=== PATIENT | female | born 1990 | race Caucasian/White ===

== ENCOUNTER 2017-05-06 17:20 | Emergency (ER) | payer BC ==
[2017-05-06 17:30] VITALS: BP 143/85
[2017-05-06] MEDS ORDERED: predniSONE 20 MG Tab PO ONE (18:05)
[2017-05-06] MEDS ORDERED: Acetaminophen 325 MG Tab PO ONE (18:06)
--- NOTE | 2017-05-06 18:06 | EDM.PDOC ---
ED HPI GENERAL MEDICAL PROBLEM - General Chief Complaint: Chest Pain Stated Complaint: CHEST PAIN W/DULL PAINI IN ARM Time Seen by Provider: 05/06/17 17:26 Source of Information: Reports: Patient, RN Notes Reviewed - History of Present Illness INITIAL COMMENTS - FREE TEXT/NARRATIVE: 27-year-old female comes in with left-sided chest discomfort, left shoulder pain and radiation of pain down the left arm. The pain is left upper chest just medial to the shoulder. This is described as an aching and burning type discomfort. She also does have some radiation of the left neck toward the left jaw and ear. Pain has been fairly steady for about the last 7 days. She states certain types of motion actually seemed to make it better, not aware of any particular activities that make it worse. She does work at [employer] and does have a lot of repetitive motion with her arms and her work in the [employer] department. nO Recent fall or injury that she is aware of. Left Upper Chest Pain Score (Numeric/FACES): 5 - Related Data Allergies Allergy/AdvReac Type Severity Reaction Status Date / Time No Known Allergies Allergy Verified 05/06/17 17:30 Home Meds: Home Meds Ethinyl Estradiol/Drospirenone [Loryna 3 MG-0.02 MG] 1 each PO ASDIRECTED [History] Hydrochlorothiazide. 25 mg PO DAILY 01/25/15 [History] Spironolactone. 25 mg PO DAILY 01/25/15 [History] Pantoprazole [Pantoprazole Sodium] 40 mg PO DAILY 05/06/17 [History] Prednisone [IJD: predniSONE] 20 mg PO WITHBREAKFAST #7 tab 05/06/17 [Rx] Past Medical History - Past Health History Medical/Surgical History: Denies Medical/Surgical History HEENT History: Reports: Impaired Vision Cardiovascular History: Reports: Hypertension Gastrointestinal History: Reports: GERD - Past Surgical History GI Surgical History: Reports: Cholecystectomy, EGD Social & Family History - Tobacco Use Smoking Status *Q: Never Smoker Second Hand Smoke Exposure: No - Caffeine Use Caffeine Use: Reports: None - Alcohol Use Days Per Week of Alcohol Use: 0 - Recreational Drug Use Recreational Drug Use: No ED ROS GENERAL - Review of Systems Review Of Systems: See Below Constitutional: Denies: Fever, Chills, Diaphoresis HEENT: Denies: Sinus Problem, Throat Pain Respiratory: Reports: Pleuritic Chest Pain. Denies: Shortness of Breath Cardiovascular: Denies: Chest Pain GI/Abdominal: Denies: Abdominal Pain (Occasional mild discomfort with deep breathing), Nausea, Vomiting Musculoskeletal: Reports: Neck Pain (Mild left base), Joint Pain Skin: Reports: No Symptoms (Left shoulder radiating to left arm) Neurological: Denies: Numbness, Tingling, Weakness ED EXAM, GENERAL - Physical Exam Exam: See Below General Appearance: Alert, No Apparent Distress Eye Exam: Bilateral Eye: PERRL Ear Exam: Left Ear: TM normal Nose: Normal Inspection Throat/Mouth: Normal Inspection Head: Atraumatic. No: Facial Swelling, Facial Tenderness Neck: Supple, Full Range of Motion, Other (For mild tenderness left base, no swelling or mass palpable). No: Lymphadenopathy (L), Lymphadenopathy (R) Respiratory/Chest: No Respiratory Distress, Lungs Clear, Normal Breath Sounds, Chest Non-Tender (For a mild tenderness left sternal border and left upper anterior chest as well) Cardiovascular: Regular Rate, Rhythm GI/Abdominal: Soft, Non-Tender Extremities: Normal Inspection Neurological: Alert, Oriented, No Motor/Sensory Deficits Skin Exam: Warm, Dry, Normal Color EKG INTERPRETATION EKG Date: 05/06/17 Rhythm: NSR [place]: Normal P-Wave: Present QRS: Normal ST-T: Normal Course - Vital Signs Last Recorded V/S: Last Vital Signs Temp 97.1 F 05/06/17 17:25 Pulse 86 05/06/17 17:25 Resp 16 05/06/17 17:25 BP 143/85 H 05/06/17 17:25 Pulse Ox 100 05/06/17 17:25 - Orders/Labs/Meds Orders: Active Orders 24 hr Category Date Time Status EKG 12 Lead [EKG Documentation Completion] [RC] URGENT Care 05/06/17 17:36 Active Meds: Medications Discontinued Medications Generic Name Dose Route Start Last Admin Trade Name Zeferinoq PRN Reason Stop Dose Admin Acetaminophen 975 mg 05/06/17 18:06 Tylenol PO 05/06/17 18:07 NOW ONE Prednisone 40 mg 05/06/17 18:05 Prednisone PO 05/06/17 18:06 ONETIME ONE Departure - Departure Time of Disposition: 18:15 Disposition: Home, Self-Care 01 Condition: Fair Clinical Impression: Cervical radiculopathy, Atypical chest pain Prescriptions: Prednisone [IJD: predniSONE] 20 mg PO WITHBREAKFAST #7 tab Referrals: Alyse Bolanos MD [Primary Care Provider] - Forms: ED Department Discharge Additional Instructions: Tylenol 1 or 2 tabs 3 times daily for discomfort, prednisone 20 mg daily for the next 5 days, you have been given 40 mg orally while here in the ED this evening. Up with your regular medical provider in about 5-6 days later next week , call Sunday morning for appointment. Return to ED if symptoms worsening in any way. - My Orders Last 24 Hours: My Active Orders 05/06/17 17:36 EKG 12 Lead [EKG Documentation Completion] [RC] URGENT - Assessment/Plan Last 24 Hours: My Active Orders 05/06/17 17:36 EKG 12 Lead [EKG Documentation Completion] [RC] URGENT
== END 2017-05-06 18:23 | disposition home or self-care (01) ==
LOC: JD.ED 17:20
DX: R07.89 Other chest pain (principal); M54.12 Radiculopathy, cervical region; I10 Essential (primary) hypertension; K21.9 Gastro-esophageal reflux disease without esophagitis; Z79.899 Other long term (current) drug therapy
CPT/HCPCS: 93005; 99285; A9270; 93010; 99284

== ENCOUNTER 2017-09-12 02:04 | Emergency (ER) | payer BC ==
--- NOTE | 2017-09-12 02:17 | EDM.PDOC ---
ED HPI GENERAL MEDICAL PROBLEM - General Chief Complaint: Chest Pain Stated Complaint: CHEST AND SIDE PAIN Time Seen by Provider: 09/12/17 02:16 Source of Information: Reports: Patient History Limitations: Reports: No Limitations - History of Present Illness INITIAL COMMENTS - FREE TEXT/NARRATIVE: 27-year-old female attends the ED with left precordial chest pain. She states it 's a constant deep aching discomfort that worsens in intermittently with sharp stabbing pains. She's had it off and on since last week which is nearly 6 days. She has had a very mild associated bronchitis and cough. No fever or chills. The control pill. She has no recent long travel history. She does work and stands sometimes for 8-10 hours at a time. No history of blood clots appreciated. Pain is worsened by deep inspiration. No recent chest wall injuries. She did take Tylenol yesterday afternoon for the pain and bleeding that did help some. Onset: Gradual Onset Date: 09/06/17 Duration: Day(s):, Getting Worse (Much more intense tonight.), Intermittent Location: Reports: Chest (Left precordial chest range through to her upper mid back left side) Quality: Reports: Ache, Sharp (Intermittently), Stabbing Severity: Moderate Improves with: Reports: None Worsens with: Reports: None Context: Reports: Other. Denies: Activity, Exercise, Lifting, Sick Contact, Trauma Associated Symptoms: Reports: Chest Pain ( has mild bronchitis which is getting better), Cough, cough w sputum (Spontaneous occurrence). Denies: No Other Symptoms, Confusion ( history of present illness ), Diaphoresis, Fever/Chills, Headaches, Loss of Appetite, Malaise, Nausea/Vomiting, Rash, Seizure, Shortness of Breath, Syncope, Weakness Treatments SHIPYARD HELPER: Reports: Acetaminophen Left Chest Pain Score (Numeric/FACES): 6 - Related Data Allergies Allergy/AdvReac Type Severity Reaction Status Date / Time No Known Allergies Allergy Verified 09/12/17 02:10 Home Meds: Home Meds Ethinyl Estradiol/Drospirenone [Loryna 3 MG-0.02 MG] 1 each PO ASDIRECTED [History] Hydrochlorothiazide. 25 mg PO DAILY 01/25/15 [History] Spironolactone. 25 mg PO DAILY 01/25/15 [History] Pantoprazole [Pantoprazole Sodium] 40 mg PO DAILY 05/06/17 [History] Diclofenac Sodium [Voltaren] 50 mg PO TID #24 tab.ec 09/12/17 [Rx] predniSONE [Deltasone] 20 mg PO ASDIRECTED #15 tablet 09/12/17 [Rx] Past Medical History - Past Health History Medical/Surgical History: Denies Medical/Surgical History HEENT History: Reports: Impaired Vision Other HEENT History: Wears glasses Cardiovascular History: Reports: Hypertension Gastrointestinal History: Reports: GERD - Past Surgical History GI Surgical History: Reports: Cholecystectomy, EGD Social & Family History - Tobacco Use Smoking Status *Q: Never Smoker - Caffeine Use Caffeine Use: Reports: None - Recreational Drug Use Recreational Drug Use: No - Living Situation & Occupation Living situation: Reports: Occupation: Employed ED ROS GENERAL - Review of Systems Review Of Systems: See Below Constitutional: Denies: Fever, Chills, Malaise, Fatigue, Decreased Appetite, Weight Loss HEENT: Reports: No Symptoms Respiratory: Reports: Pleuritic Chest Pain (Some pains are sharp and stabbing left precordial chest.). Denies: Shortness of Breath, Wheezing, Cough, Sputum, Hemoptysis, Other Cardiovascular: Reports: Chest Pain. Denies: Blood Pressure Problem, Claudication, Dyspnea on Exertion, Edema, Lightheadedness (See history of present illness), Orthopnea, Palpitations, Syncope Endocrine: Reports: No Symptoms GI/Abdominal: Reports: No Symptoms : Reports: No Symptoms Musculoskeletal: Reports: No Symptoms Skin: Reports: No Symptoms Neurological: Reports: No Symptoms Psychiatric: Reports: No Symptoms Hematologic/Lymphatic: Reports: No Symptoms Immunologic: Reports: No Symptoms ED EXAM, GENERAL - Physical Exam Exam: See Below Exam Limited By: No Limitations General Appearance: Alert, WD/WN, Anxious, Mild Distress Eye Exam: Bilateral Eye: Normal Inspection Neck: Normal Inspection, Supple, Non-Tender, Full Range of Motion. No: Carotid Bruit, Lymphadenopathy (L), Lymphadenopathy (R) Respiratory/Chest: No Respiratory Distress, Lungs Clear, Normal Breath Sounds, No Accessory Muscle Use, Other (She has slight tenderness on palpation of the fourth rib left anterior lateral chest particularly at the anterior axillary line.) Cardiovascular: Normal Peripheral Pulses, Regular Rate, Rhythm, No Edema, No Gallop, No Murmur Peripheral Pulses: 3+: Posterior Tibial (L), Posterior Tibial (R), Dorsalis Pedis (L), Dorsalis Pedis (R) GI/Abdominal: Normal Bowel Sounds, Soft, Non-Tender, No Organomegaly Back Exam: Normal Inspection, Full Range of Motion, Other (No definite rib head subluxation appreciated). No: CVA Tenderness (L), CVA Tenderness (R) Extremities: Normal Inspection, Normal Range of Motion, Non-Tender, No Pedal Edema, Other (No dependent edema. Both calves are soft and compliant.) Neurological: Alert, Oriented, CN II-XII Intact, Normal Cognition, Normal Gait, Other Psychiatric: Normal Affect, Normal Mood Skin Exam: Warm, Dry, Intact, Normal Color, No Rash EKG INTERPRETATION EKG Date: 09/12/17 Time: 02:30 Rhythm: NSR Rate (Beats/Min): 80 [place]: Normal P-Wave: Present QRS: Normal ST-T: Normal QT: Prolonged (Minimally prolonged.) EKG Interpretation Comments: Essentially normal ECG Course - Vital Signs Last Recorded V/S: Last Vital Signs Temp 36.9 C 09/12/17 02:10 Pulse 72 09/12/17 04:10 Resp 15 09/12/17 04:10 BP 126/81 09/12/17 04:10 Pulse Ox 99 09/12/17 04:10 - Orders/Labs/Meds Orders: Active Orders 24 hr Category Date Time Status EKG Documentation Completion [RC] STAT Care 09/12/17 02:23 Active Labs: Laboratory Tests 09/12/17 09/12/17 09/12/17 Range/Units 02:35 02:35 02:35 WBC 9.17 (3.98-10.04) K/mm3 RBC 4.25 (3.98-5.22) M/mm3 Hgb 12.0 (11.2-15.7) gm/L Hct 36.0 (34.1-44.9) % MCV 84.7 (79.4-94.8) fl MCH 28.2 (25.6-32.2) pg MCHC 33.3 (32.2-35.5) g/dl RDW Std Deviation 37.1 (36.4-46.3) fL Plt Count 259 (182-369) K/mm3 MPV 9.7 (9.4-12.3) fl Neutrophils % (Manual) 54 (40-60) % Band Neutrophils % 3 (0-10) % Lymphocytes % (Manual) 37 (20-40) % Atypical Lymphs % 0 % Monocytes % (Manual) 5 (2-10) % Eosinophils % (Manual) 0 L (0.7-5.8) % Basophils % (Manual) 1 (0.1-1.2) Platelet Estimate Adequate RBC Morph Comment Normal D-Dimer, Quantitative 0.21 (0.19-0.50) mg/L Sodium 140 (136-145) mEq/L Potassium 3.1 L (3.5-5.1) mEq/L Chloride 103 (98-107) mEq/L Carbon Dioxide 27 (21-32) mEq/L Anion Gap 13.1 (5-15) BUN 12 (7-18) mg/dL Creatinine 0.8 (0.55-1.02) mg/dL Est Cr Clr Drug Dosing 92.83 mL/min Estimated GFR (MDRD) > 60 (>60) mL/min BUN/Creatinine Ratio 15.0 (14-18) Glucose 98 (74-106) mg/dL Calcium 9.3 (8.5-10.1) mg/dL Total Bilirubin 0.5 (0.2-1.0) mg/dL AST 13 L (15-37) U/L ALT 13 L (14-59) U/L Alkaline Phosphatase 48 (46-116) U/L Troponin I < 0.017 (0.00-0.056) ng/mL C-Reactive Protein (<1.0) mg/dL Total Protein 7.4 (6.4-8.2) g/dl Albumin 3.6 (3.4-5.0) g/dl Globulin 3.8 gm/dL Albumin/Globulin Ratio 1.0 (1-2) /09/24 Range/Units 02:35 WBC (3.98-10.04) K/mm3 RBC (3.98-5.22) M/mm3 Hgb (11.2-15.7) gm/L Hct (34.1-44.9) % MCV (79.4-94.8) fl MCH (25.6-32.2) pg MCHC (32.2-35.5) g/dl RDW Std Deviation (36.4-46.3) fL Plt Count (182-369) K/mm3 MPV (9.4-12.3) fl Neutrophils % (Manual) (40-60) % Band Neutrophils % (0-10) % Lymphocytes % (Manual) (20-40) % Atypical Lymphs % % Monocytes % (Manual) (2-10) % Eosinophils % (Manual) (0.7-5.8) % Basophils % (Manual) (0.1-1.2) Platelet Estimate RBC Morph Comment D-Dimer, Quantitative (0.19-0.50) mg/L Sodium (136-145) mEq/L Potassium (3.5-5.1) mEq/L Chloride (98-107) mEq/L Carbon Dioxide (21-32) mEq/L Anion Gap (5-15) BUN (7-18) mg/dL Creatinine (0.55-1.02) mg/dL Est Cr Clr Drug Dosing mL/min Estimated GFR (MDRD) (>60) mL/min BUN/Creatinine Ratio (14-18) Glucose (74-106) mg/dL Calcium (8.5-10.1) mg/dL Total Bilirubin (0.2-1.0) mg/dL AST (15-37) U/L ALT (14-59) U/L Alkaline Phosphatase (46-116) U/L Troponin I (0.00-0.056) ng/mL C-Reactive Protein 0.8 (<1.0) mg/dL Total Protein (6.4-8.2) g/dl Albumin (3.4-5.0) g/dl Globulin gm/dL Albumin/Globulin Ratio (1-2) Meds: Medications Discontinued Medications Generic Name Dose Route Start Last Admin Trade Name Freq PRN Reason Stop Dose Admin Ibuprofen 600 mg 09/12/17 03:54 09/12/17 04:06 Motrin PO 09/12/17 03:55 600 mg ONETIME ONE Administration Prednisone 20 mg 09/12/17 03:55 09/12/17 04:06 Prednisone PO 09/12/17 03:56 20 mg ONETIME ONE Administration - Radiology Interpretation Free Text/Narrative:: 27-year-old female says to the ED with increasing left precordial chest pains which are deep aching discomfort with intermittent sharp stabbing pleuritic- like pains for 6 days. Worse tonight unable to sleep because of the severity of the pain. She is taken Tylenol yesterday afternoon with mild improvement. Vital signs are normal with sats 100% respiratory to 16. Heart is sinus rhythm. Chest wall pain is minimal at the fourth rib left anterior chest. No other findings are evident with clear lung alonzo. Plan ECG chest x-ray portable routine labs including a d-dimer and a CRP. She was offered analgesia but at this time refused. - Re-Assessments/Exams Free Text/Narrative Re-Assessment/Exam: 09/12/17 03:00: Chest x-ray done portably is within normal limits. Shows no pneumonic infiltrates no pneumothorax. Ribs and lung parenchyma appear normal 09/12/17 03:49 Labs are back. White count is normal at 9.17 with 54% it feels and 3% bands reported. Hemoglobin is 12.0 with hematocrit of 36.0. Platelet count is 259,000. D-dimer is normal at 0.21. Sodium is 140 with potassium low at 3.1. Chloride 103 with a bicarbonate of 27. And a gap is normal at 13.1. BUN is 12 with a creatinine of 0.8. GFR is greater than 60. Glucose is 98. Calcium is 9.3 total bilirubin 0.5 AST is 13. ALT is 13. Troponin I is less than 0.017. CRP is less than 0.8. Therefore lab so reveal anything serious. Chest pain is likely of viral etiology. I'm going to place her on 07/17/49 milliamps 3 times daily for 8 days and prednisone 21 g twice a day for 5 days and then once in the morning only for another 5 days for relief of inflammation and pain. Departure - Departure Time of Disposition: 03:55 Disposition: Home, Self-Care 01 Condition: Fair Clinical Impression: Non-cardiac chest pain, Anterior chest wall pain Prescriptions: Diclofenac Sodium [Voltaren] 50 mg PO TID #24 tab.ec predniSONE [Deltasone] 20 mg PO ASDIRECTED #15 tablet Instructions: Chest Wall Pain, [id number], Nonspecific Chest Pain, Easy-to- Read Referrals: Alyse Bolanos MD [Primary Care Provider] - Forms: ED Department Discharge Additional Instructions: Evaluation in the emergency department tonight in regards to worsening left precordial upper left chest pain. Symptoms started 6 days ago and were much worse tonight. Described as a deep dull aching sensation with intermittent sharp stabbing component to the pain especially with deep breathing. Cardiac workup was carried out in the ED today. ECG is within normal limits. Chest x- ray is normal. Lab tests show no signs of heart involvement in this chest pain. Also blood clots to the lungs were ruled out. Markers for inflammation were also negative. This suggests that this current discomfort is viral in origin and involving muscles and lining of the ribs of the left chest wall. Treatment is time to get better. Think of it as a" cold " in your chest wall. Treatment is anti-inflammatory Voltaren 50 mg 3 times daily ideally with food. This is to be taken for 8 days. Second tablet is Deltasone 20 mg with breakfast and supper for 5 days then 1 tab in the morning only for another 5 days. First dose provided in the ED this morning and is considered her breakfast dose. Therefore next tablet would not be due to suppertime tonight. Expect gradual improvement over the next 3 days as the medication starts to work. Follow-up post personal physician if not completely back to normal in 10 days' time - My Orders Last 24 Hours: My Active Orders 09/12/17 02:23 EKG Documentation Completion [RC] STAT - Assessment/Plan Last 24 Hours: My Active Orders 09/12/17 02:23 EKG Documentation Completion [RC] STAT
[2017-09-12] MEDS ORDERED: Ibuprofen 600 MG Tab PO ONE (03:54)
[2017-09-12] MEDS ORDERED: predniSONE 20 MG Tab PO ONE (03:55)
[2017-09-12 04:12] VITALS: BP 126/81
--- NOTE | 2017-09-12 09:47 | CR ---
Chest: Frontal view of the chest was obtained. Comparison: Prior chest x-ray of 12/01/15. Heart size and mediastinum are within normal limits. Lungs are clear. Bony structures are grossly intact. Impression: 1. Nothing acute is seen on frontal chest x-ray. Diagnostic code #1
== END 2017-09-12 04:10 | disposition home or self-care (01) ==
LOC: JD.ED 02:04
DX: R07.89 Other chest pain (principal); I10 Essential (primary) hypertension; Z79.899 Other long term (current) drug therapy
CPT/HCPCS: 36415; 71045; 80053; 84484; 85007; 85027; 85379; 86140; 93005; 99285; A9270

== ENCOUNTER 2019-11-04 07:47 | Inpatient (IN) | payer OTHER ==
[2019-11-04] MEDS ORDERED: Misoprostol 100 MCG Tab VAG PRN (19:07)
[2019-11-04] MEDS ORDERED: Nalbuphine 10 MG/ML Syringe IVPUSH PRN (19:07)
[2019-11-04] MEDS ORDERED: Sodium Chloride 0.9% 10 ML Syringe FLUSH PRN (19:07)
[2019-11-04] MEDS ORDERED: Ondansetron 4 MG/2 ML SDV IVPUSH PRN (19:07)
--- NOTE | 2019-11-04 19:12 | PCM.LDHP ---
L&D History of Present Illness - General Date of Service: 11/04/19 Admit Problem/Dx: Patient Status Order with Admit Dx/Problem 11/04/19 19:07 Patient Status [ADT] Routine Admission Diagnosis/Problem Admission Diagnosis/Problem Chronic hypertension Source of Information: Patient History Limitations: Reports: No Limitations - History of Present Illness Introduction:: Patient is a 29 y/o at 37 0/7 wks for labile CHTN in . Known CHTN at start of , but off medications since 01/2019. Had mid-mild range BP's in early , but at 16 wks had pressure just under severe range and so was started on Procardia, 30 mg. Had additional severe range at 20 wks, but then remained stable in mild range until 34 wks. At that point had again pressure right under severe range. Had Procardia increased to 60 mg. Labs and NST's done frequently. No signs of superimposed preeclampsia, but instead thought to be a worsening of her CHTN. Doing well today. No worrisome signs/symptoms. Notes good FM. - Related Data Allergies/Adverse Reactions: Allergies Allergy/AdvReac Type Severity Reaction Status Date / Time No Known Allergies Allergy Verified 10/20/19 09:02 Home Medications: Home Meds Aspirin [Low Dose Aspirin EC] 81 mg PO DAILY 10/20/19 [History] FLUoxetine [PROzac] 10 mg PO DAILY 10/20/19 [History] Fish Oil/[place]-3 Fatty Acids [Fish Oil 1,000 MG] 1 each PO DAILY 10/20/19 [History] NIFEdipine [Procardia] 60 mg PO DAILY 10/20/19 [History] Prenat 115/Iron Fum/Folic/Dss [ 19 Tablet] 1 each PO DAILY 10/20/19 [ History] Past Medical History HEENT History: Reports: Impaired Vision Other HEENT History: Wears glasses Cardiovascular History: Reports: Hypertension Gastrointestinal History: Reports: Cholelithiasis, GERD METAL BONDER History: Reports: Polycystic Ovaries, : 1 Para: 0 LMP (Approximate): Psychiatric History: Reports: Depression - Past Surgical History HEENT Surgical History: Reports: Oral Surgery (tooth extraction) GI Surgical History: Reports: Cholecystectomy, Colonoscopy, EGD Social & Family History - Tobacco Use Smoking Status *Q: Never Smoker - Caffeine Use Caffeine Use: Reports: None - Alcohol Use Alcohol Use History: No - Recreational Drug Use Recreational Drug Use: No - Living Situation & Occupation Living situation: Reports: Occupation: Employed H&P Review of Systems - Review of Systems: Review Of Systems: See Below General: Reports: No Symptoms Pulmonary: Reports: No Symptoms Cardiovascular: Reports: No Symptoms Gastrointestinal: Reports: No Symptoms Genitourinary: Reports: No Symptoms Musculoskeletal: Reports: No Symptoms Psychiatric: Reports: No Symptoms L&D Exam - Exam Exam: See Below - OB Specific Contraction Intensity: Irritability Movement: Active Heart Tones: Present Heart Tones per Min: 140 Heart Rate (FHR) Variability: Moderate (6-25 bmp) Presentation: Vertex - Gómez Score Gómez Score Cervix Position: Midposition Gómez Score Consistency: Soft Gómez Score Effacement: 51-70% Gómez Score Dilation: Closed Gómez Score 's Station: -3 Gómez Score Total: 5 - Exam General: Alert, Oriented, Cooperative Lungs: Clear to Auscultation, Normal Respiratory Effort Cardiovascular: Regular Rate, Regular Rhythm GI/Abdominal Exam: Soft, Non-Tender Genitourinary: Normal external exam Extremities: Normal Inspection Skin: Warm, Dry, Intact - Patient Data Result Diagrams: 11/04/19 19:25 11/04/19 19:25 - Problem List (1) Chronic hypertension affecting SNOMED Code(s): 49229962 ICD Code: O10.919 - UNSP PRE-EXISTING HTN COMP , UNSP TRIMESTER Status: Acute Current Visit: Yes (2) 37 weeks gestation of SNOMED Code(s): 29063169 ICD Code: Z3A.37 - 37 WEEKS GESTATION OF Status: Acute Current Visit: Yes Problem List Initiated/Reviewed/Updated: Yes Orders Last 24hrs: Active Orders 24 hr Category Date Time Status Patient Status [ADT] Routine ADT 11/04/19 19:07 Ordered Communication Order [RC] ASDIRECTED Care 11/04/19 19:07 Ordered Communication Order [RC] ASDIRECTED Care 11/04/19 19:07 Ordered Communication Order [RC] ASDIRECTED Care 11/04/19 19:07 Ordered Non Stress Test [RC] PER UNIT ROUTINE Care 11/04/19 19:07 Ordered Notify Provider [RC] ASDIRECTED Care 11/04/19 19:07 Ordered Notify Provider [RC] PRN Care 11/04/19 19:07 Ordered Peripheral IV Care [RC] . DIRECTED Care 11/04/19 19:08 Ordered Vital Signs [RC] ASDIRECTED Care 11/04/19 19:07 Ordered Regular Diet [DIET] Diet 11/04/19 Dinner Ordered ALANINE AMINOTRANSFERASE,ALT [CHEM] Routine Lab 11/04/19 19:07 Ordered ASPARTATE AMNIOTRANSFERASE,AST [CHEM] Routine Lab 11/04/19 19:07 Ordered CBC W/O DIFF,HEMOGRAM [HEME] Routine Lab 11/04/19 19:07 Ordered CREATININE W/GFR [CHEM] Routine Lab 11/04/19 19:07 Ordered PROTEIN/CREATININE RATIO,URINE [URCHEM] Routine Lab 11/04/19 19:07 Ordered RAPID PLASMA REAGIN,RPR [CHEM] Routine Lab 11/04/19 19:07 Ordered TYPE AND SCREEN [BBK] Routine Lab 11/04/19 19:07 Ordered Lactated Ringers [Ringers, Lactated] 1,000 ml Med 11/04/19 19:15 Ordered IV ASDIRECTED Nalbuphine [Nubain] Med 11/04/19 19:07 Ordered 10 mg IVPUSH Q2H PRN Ondansetron [Zofran] Med 11/04/19 19:07 Ordered 4 mg IVPUSH Q4H PRN Oxytocin/Lactated Ringers [Pitocin in LR 10 Units/1,000 Med 11/04/19 19:15 Ordered ML] 10 unit in 1,000 ml IV .CONTINUOUS Oxytocin/Lactated Ringers [Pitocin in LR 10 Units/1,000 Med 11/04/19 19:15 Ordered ML] 10 unit in 1,000 ml IV TITRATE Sodium Chloride 0.9% [Saline Flush] Med 11/04/19 19:07 Ordered 10 ml FLUSH ASDIRECTED PRN miSOPROStoL [Cytotec] Med 11/04/19 19:07 Ordered 25 mcg VAG Q4H PRN Electronic Heart Tones Internal [WOMSER] Per Unit Oth 11/04/19 19:07 Ordered Routine Medication Administration Instruction [OM.PC] Oth 11/04/19 19:15 Ordered ASDIRECTED Peripheral IV Insertion Adult [OM.PC] Routine Oth 11/04/19 19:07 Ordered Resuscitation Status Routine Resus Stat 07/28/20 19:07 Ordered Assessment/Plan Comment:: * Labs including AST, ALT, Creatinine, urine protein to creatinine ratio * Continue home Procardia XL 60 mg daily * Cytotec to start IOL, pitocin/AROM when able * GBS negative, no need for antibiotics * Pain management per patient preference * Anticipate * Continue home Prozac
[2019-11-04] MEDS ORDERED: Misoprostol 25 MCG (1/4 of 100 MCG) Tab ONE (19:15)
[2019-11-04] MEDS ORDERED: Oxytocin/Lactated Ringers 10 UNIT/1,000 ML BAG IV SCH ×2 (19:15)
[2019-11-04] MEDS ORDERED: Zolpidem 5 MG Tab PO PRN (19:30)
[2019-11-04] MEDS ORDERED: FLUoxetine 20 MG Cap PO SCH (21:00)
[2019-11-05] MEDS: Misoprostol 25 MCG (1/4 of 100 MCG) Tab VAG PRN ×2 (00:05→04:00)
[2019-11-05] MEDS ORDERED: NIFEdipine 30 MG Tab.ER PO SCH (07:00)
--- NOTE | 2019-11-05 07:26 | PCM.PNLD ---
Labor Progress Note - VS & Meds Vital Signs: Last Vital Signs Temp 36.4 C 11/04/19 19:26 Pulse 112 H 11/04/19 19:26 Resp 16 11/04/19 19:26 BP 152/96 H 11/04/19 19:26 Pulse Ox Active Medications: Current Medications Fluoxetine HCl (Prozac) 20 mg PO DAILY [facility] Oxytocin/Lactated Ringer's (Pitocin In Lr 10 Units/1,000 Ml) 10 unit in 1,000 mls @ 12 mls/hr IV TITRATE [facility]; Protocol Oxytocin/Lactated Ringer's (Pitocin In Lr 10 Units/1,000 Ml) 10 unit in 1,000 mls @ 500 mls/hr IV .CONTINUOUS [facility] Lactated Ringer's (Ringers, Lactated) 1,000 mls @ 40 mls/hr IV ASDIRECTED [facility] Nalbuphine HCl (Nubain) 10 mg IVPUSH Q2H PRN PRN Reason: Pain Nifedipine (Procardia Xl) 60 mg PO ONETIME [facility] Ondansetron HCl (Zofran) 4 mg IVPUSH Q4H PRN PRN Reason: Nausea/Vomiting Sodium Chloride (Saline Flush) 10 ml FLUSH ASDIRECTED PRN PRN Reason: Keep Vein Open Zolpidem Tartrate (Ambien) 5 mg PO BEDTIME PRN PRN Reason: Insomnia Discontinued Medications Fluoxetine HCl (Prozac) 20 mg PO BEDTIME [facility] Last Admin: 11/04/19 21:03 Dose: Not Given Documented by: Misoprostol (Cytotec) 25 mcg VAG Q4H PRN PRN Reason: cervical ripening Last Admin: 11/04/19 19:20 Dose: 25 mcg Documented by: Misoprostol (Cytotec) Confirm Administered Dose 25 mcg .ROUTE .STK-MED ONE Stop: 11/04/19 19:16 Last Admin: 11/04/19 21:01 Dose: Not Given Documented by: Misoprostol (Cytotec) 25 mcg VAG Q4H PRN PRN Reason: cervical ripening Last Admin: 11/05/19 04:00 Dose: 25 mcg Documented by: - Uterine Contractions Uterine Monitoring Mode: External [place] Contraction Intensity: Irritability Uterine Resting Tone: Soft - Monitoring Monitor Mode: External Ultrasound Heart Rate (FHR) Baseline: 135 Heart Rate (FHR) Variability: Moderate (6-25 bmp) Accelerations: Present, 15x15 Decelerations: None Strip Review: Category I - Vaginal Exam Dilation (cm): 0.5 Effacement (Percent): 50 Station: -3 Cervical Position: Midposition - Labor Progress (Free Text) Labor Progress: Patient received 3 doses of cytotec overnight. Will start pitocin at 0800. Just attempted to place [place], but challenging and patient not able to tolerate. Will attempt again after has had a few hours of pitocin
[2019-11-05] MEDS: FLUoxetine 20 MG Cap PO SCH ×2 (07:37→10:38)
[2019-11-05] MEDS: Lactated Ringers 1,000 ML IV SCH ×3 (08:05→14:43)
[2019-11-05] MEDS ORDERED: Labetalol 100 MG/20 ML MDV IVPUSH ONE (08:24)
--- NOTE | 2019-11-05 09:11 | PCM.PNLD ---
Labor Progress Note - VS & Meds Vital Signs: Last Vital Signs Temp 36.4 C 11/04/19 19:26 Pulse 112 H 11/04/19 19:26 Resp 16 11/04/19 19:26 BP 153/93 H 11/05/19 07:36 Pulse Ox Active Medications: Current Medications Fluoxetine HCl (Prozac) 20 mg PO DAILY [facility] Last Admin: 11/05/19 07:37 Dose: 20 mg Documented by: Oxytocin/Lactated Ringer's (Pitocin In Lr 10 Units/1,000 Ml) 10 unit in 1,000 mls @ 12 mls/hr IV TITRATE [facility]; Protocol Last Titration: 11/05/19 08:35 Dose: 4 munits/min, 24 mls/hr Documented by: Oxytocin/Lactated Ringer's (Pitocin In Lr 10 Units/1,000 Ml) 10 unit in 1,000 mls @ 500 mls/hr IV .CONTINUOUS [facility] Lactated Ringer's (Ringers, Lactated) 1,000 mls @ 40 mls/hr IV ASDIRECTED [facility] Last Admin: 11/05/19 08:05 Dose: 40 mls/hr Documented by: Nalbuphine HCl (Nubain) 10 mg IVPUSH Q2H PRN PRN Reason: Pain Ondansetron HCl (Zofran) 4 mg IVPUSH Q4H PRN PRN Reason: Nausea/Vomiting Sodium Chloride (Saline Flush) 10 ml FLUSH ASDIRECTED PRN PRN Reason: Keep Vein Open Zolpidem Tartrate (Ambien) 5 mg PO BEDTIME PRN PRN Reason: Insomnia Discontinued Medications Fluoxetine HCl (Prozac) 20 mg PO BEDTIME [facility] Last Admin: 11/04/19 21:03 Dose: Not Given Documented by: Labetalol HCl (Normodyne) 20 mg IVPUSH ONETIME ONE; Protocol Stop: 11/05/19 08:25 Last Admin: 11/05/19 08:39 Dose: 20 mg Documented by: Misoprostol (Cytotec) 25 mcg VAG Q4H PRN PRN Reason: cervical ripening Last Admin: 11/04/19 19:20 Dose: 25 mcg Documented by: Misoprostol (Cytotec) Confirm Administered Dose 25 mcg .ROUTE .STK-MED ONE Stop: 11/04/19 19:16 Last Admin: 11/04/19 21:01 Dose: Not Given Documented by: Misoprostol (Cytotec) 25 mcg VAG Q4H PRN PRN Reason: cervical ripening Last Admin: 11/05/19 04:00 Dose: 25 mcg Documented by: Nifedipine (Procardia Xl) 60 mg PO ONETIME [facility] Last Admin: 11/05/19 07:36 Dose: 60 mg Documented by: - Uterine Contractions Uterine Monitoring Mode: External [place] Contraction Intensity: Irritability Uterine Resting Tone: Soft - Monitoring Monitor Mode: External Ultrasound Heart Rate (FHR) Baseline: 140 Heart Rate (FHR) Variability: Moderate (6-25 bmp) Accelerations: Present, 15x15 Decelerations: None Strip Review: Category I - Vaginal Exam Dilation (cm): 2 Effacement (Percent): 50 Station: -3 Cervical Position: Midposition - Labor Progress (Free Text) Labor Progress: Patient with a few severe range BP's this AM. No signs/symptoms. No concerning exam findings. Given 1 dose of IV labetalol - 20 mg with appropriate response. Had received her home Procardia at 0700. Will continue to monitor closely. Do not think this is findings of severe or superimposed preeclampsia and just her CHTN, however, will start magnesium if continues to be elevated. Wang bulb able to be successfully placed
[2019-11-05] MEDS ORDERED: Magnesium Sulfate/Water 2 GM in Premix Bag 1 BAG IV ONE (10:15)
[2019-11-05] MEDS ORDERED: Calcium Gluconate 10% 1 GM/10 ML SDV IV PRN (10:49)
[2019-11-05] MEDS ORDERED: Magnesium Sulfate/Water 4 GM in Premix Bag 1 BAG IV ONE (10:49)
[2019-11-05] MEDS ORDERED: Magnesium Sulfate/Water 50 ML ONE (10:53)
[2019-11-05] MEDS ORDERED: Lactated Ringers 1,000 ML IV SCH (11:15)
[2019-11-05] MEDS ORDERED: ePHEDrine 50 MG/ML SDV IVPUSH PRN (11:29)
[2019-11-05] MEDS ORDERED: diphenhydrAMINE 50 MG/ML SDV IVPUSH PRN (11:29)
[2019-11-05] MEDS ORDERED: fentaNYL 100 MCG/2 ML SDV EPIDUR PRN (11:29)
--- NOTE | 2019-11-05 11:34 | PCM.PREANE ---
Preanesthetic Assessment - Procedure Proposed Procedure: latha - Anesthesia/Transfusion/Family Hx Anesthesia History: Prior Anesthesia Without Reaction Family History of Anesthesia Reaction: No Transfusion History: No Prior Transfusion(s) - Review of Systems General: No Symptoms Pulmonary: No Symptoms Cardiovascular: No Symptoms Gastrointestinal: No Symptoms Neurological: No Symptoms Other: Reports: Anxiety - Physical Assessment Vital Signs: Last Vital Signs Temp 97.6 F 11/04/19 19:26 Pulse 112 H 11/04/19 19:26 Resp 16 11/04/19 19:26 BP 153/93 H 11/05/19 07:36 Pulse Ox Height: 5 ft 4 in Weight: 124.738 kg ASA Class: 3 Mental Status: Alert & Oriented x3 Airway Class: Mallampati = 1 Dentition: Reports: Missing Tooth/Teeth (front right missing) Thyro-Mental Finger Breadths: 3 Mouth Opening Finger Breadths: 3 ROM/Head Extension: Full Lungs: Clear to Auscultation, Normal Respiratory Effort Cardiovascular: Regular Rate, Regular Rhythm - Lab Values: Laboratory Last Values WBC 10.35 K/mm3 (3.98-10.04) H 11/04/19 19:25 RBC 3.85 M/mm3 (3.98-5.22) L 11/04/19 19:25 Hgb 10.9 gm/dl (11.2-15.7) L 11/04/19 19:25 Hct 34.0 % (34.1-44.9) L 11/04/19 19:25 MCV 88.3 fl (79.4-94.8) 11/04/19 19:25 MCH 28.3 pg (25.6-32.2) 11/04/19 19:25 MCHC 32.1 g/dl (32.2-35.5) L 11/04/19 19:25 RDW Std Deviation 40.6 fL (36.4-46.3) 11/04/19 19:25 Plt Count 196 K/mm3 (182-369) 11/04/19 19:25 MPV 9.9 fl (9.4-12.3) 11/04/19 19:25 Creatinine 0.7 mg/dL (0.55-1.02) 11/04/19 19:25 Est Cr Clr Drug Dosing TNP 11/04/19 19:25 Estimated GFR (MDRD) > 60 mL/min (>60) 11/04/19 19:25 AST 12 U/L (15-37) L 11/04/19 19:25 ALT 19 U/L (14-59) 11/04/19 19:25 Ur Random Creatinine 191.0 mg/dL (30.0-125.0) H 11/04/19 21:09 U Random Total Protein 19.4 mg/dL (0.0-11.8) H 11/04/19 21:09 Protein/Creatinin Ratio 101.6 mg/g (0-149) 11/04/19 21:09 RPR Non-reactive (NONREACTIVE) 11/04/19 19:25 COVID-19 ([facility]) Negative (NEGATIVE) 11/04/19 21:30 Blood Type O POSITIVE 11/04/19 19:25 Gel Antibody Screen Negative 11/04/19 19:25 - Allergies Allergies/Adverse Reactions: Allergies Allergy/AdvReac Type Severity Reaction Status Date / Time No Known Allergies Allergy Verified 11/04/19 21:22 - Blood Blood Available: No - Acknowledgements Anesthesia Type Planned: Epidural Pt an Appropriate Candidate for the Planned Anesthesia: Yes Alternatives and Risks of Anesthesia Discussed w Pt/Guardian: Yes Pt/Guardian Understands and Agrees with Anesthesia Plan: Yes PreAnesthesia Questionnaire - Past Health History Medical/Surgical History: Denies Medical/Surgical History HEENT History: Reports: Impaired Vision Other HEENT History: Wears glasses Cardiovascular History: Reports: Hypertension Respiratory History: Reports: None Gastrointestinal History: Reports: Cholelithiasis, GERD EXHAUST TENDER History: Reports: Polycystic Ovaries, Psychiatric History: Reports: Anxiety, Depression Other Psychiatric History: currently on fluoxitine Oncologic (Cancer) History: Reports: None - Past Surgical History HEENT Surgical History: Reports: Oral Surgery (tooth extraction) GI Surgical History: Reports: Cholecystectomy, Colonoscopy, EGD - SUBSTANCE USE Smoking Status *Q: Never Smoker Tobacco Use Within Last Twelve Months: No Second Hand Smoke Exposure: No Days Per Week of Alcohol Use: 0 Recreational Drug Use History: No - HOME MEDS Home Medications: Home Meds Aspirin [Low Dose Aspirin EC] 81 mg PO DAILY 10/20/19 [History] Fish Oil/[place]-3 Fatty Acids [Fish Oil 1,000 MG] 1 each PO DAILY 10/20/19 [History] NIFEdipine [Procardia] 60 mg PO DAILY 10/20/19 [History] Prenat 115/Iron Fum/Folic/Dss [ 19 Tablet] 1 each PO DAILY 10/20/19 [History] FLUoxetine HCl [Prozac] 20 mg PO DAILY 11/04/19 [History] Ferrous Sulfate, Dried [Iron] 160 mg PO DAILY 11/04/19 [History] - CURRENT (IN HOUSE) MEDS Current Meds: Current Medications Calcium Gluconate (Calcium Gluconate) 1 gm IV ASDIRECTED PRN PRN Reason: respiratory distress Fluoxetine HCl (Prozac) 20 mg PO DAILY [facility] Last Admin: 11/05/19 10:38 Dose: Not Given Documented by: Oxytocin/Lactated Ringer's (Pitocin In Lr 10 Units/1,000 Ml) 10 unit in 1,000 mls @ 12 mls/hr IV TITRATE [facility]; Protocol Last Titration: 11/05/19 10:33 Dose: 12 munits/min, 72 mls/hr Documented by: Oxytocin/Lactated Ringer's (Pitocin In Lr 10 Units/1,000 Ml) 10 unit in 1,000 mls @ 500 mls/hr IV .CONTINUOUS [facility] Lactated Ringer's (Ringers, Lactated) 1,000 mls @ 40 mls/hr IV ASDIRECTED [facility] Last Admin: 11/05/19 08:05 Dose: 1 mls/hr Documented by: Magnesium Sulfate (Magnesium Sulfate In Water Premix) 40 gm in 1,000 mls @ 50 mls/hr IV ASDIRECTED [facility] Lactated Ringer's (Ringers, Lactated) 1,000 mls @ 75 mls/hr IV ASDIRECTED [facility] Last Admin: 11/05/19 11:06 Dose: 4 mls/hr Documented by: Nalbuphine HCl (Nubain) 10 mg IVPUSH Q2H PRN PRN Reason: Pain Ondansetron HCl (Zofran) 4 mg IVPUSH Q4H PRN PRN Reason: Nausea/Vomiting Last Admin: 11/05/19 11:03 Dose: 4 mg Documented by: Sodium Chloride (Saline Flush) 10 ml FLUSH ASDIRECTED PRN PRN Reason: Keep Vein Open Zolpidem Tartrate (Ambien) 5 mg PO BEDTIME PRN PRN Reason: Insomnia Discontinued Medications Fluoxetine HCl (Prozac) 20 mg PO BEDTIME [facility] Last Admin: 11/04/19 21:03 Dose: Not Given Documented by: Magnesium Sulfate 4 gm/ Premix 50 mls @ 150 mls/hr IV ONETIME ONE Stop: 11/05/19 11:08 Last Admin: 11/05/19 11:15 Dose: 150 mls/hr Documented by: Magnesium Sulfate 2 gm/ Premix 50 mls @ 300 mls/hr IV ONETIME ONE Stop: 11/05/19 10:24 Last Admin: 11/05/19 11:06 Dose: 300 mls/hr Documented by: Magnesium Sulfate (Magnesium Sulfate In Water Premix) Confirm Administered Dose 50 mls @ as directed .ROUTE .STK-MED ONE Stop: 11/05/19 10:54 Last Admin: 11/05/19 11:20 Dose: Not Given Documented by: Labetalol HCl (Normodyne) 20 mg IVPUSH ONETIME ONE; Protocol Stop: 11/05/19 08:25 Last Admin: 11/05/19 08:39 Dose: 20 mg Documented by: Misoprostol (Cytotec) 25 mcg VAG Q4H PRN PRN Reason: cervical ripening Last Admin: 11/04/19 19:20 Dose: 25 mcg Documented by: Misoprostol (Cytotec) Confirm Administered Dose 25 mcg .ROUTE .STK-MED ONE Stop: 11/04/19 19:16 Last Admin: 11/04/19 21:01 Dose: Not Given Documented by: Misoprostol (Cytotec) 25 mcg VAG Q4H PRN PRN Reason: cervical ripening Last Admin: 11/05/19 04:00 Dose: 25 mcg Documented by: Nifedipine (Procardia Xl) 60 mg PO ONETIME [facility] Last Admin: 11/05/19 07:36 Dose: 60 mg Documented by:
[2019-11-05] MEDS: Magnesium Sulfate/Water 40 GM/1,000 ML BAG IV SCH (11:40)
--- NOTE | 2019-11-05 12:20 | PCM.PNLD ---
Labor Progress Note - VS & Meds Vital Signs: Last Vital Signs Temp 36.4 C 11/04/19 19:26 Pulse 112 H 11/04/19 19:26 Resp 16 11/04/19 19:26 BP 153/93 H 11/05/19 07:36 Pulse Ox Active Medications: Current Medications Calcium Gluconate (Calcium Gluconate) 1 gm IV ASDIRECTED PRN PRN Reason: respiratory distress Diphenhydramine HCl (Benadryl) 25 mg IVPUSH Q6H PRN PRN Reason: pruritis Ephedrine Sulfate (Ephedrine Sulfate) 5 mg IVPUSH ASDIRECTED PRN PRN Reason: Hypotension Fentanyl (Sublimaze) 100 mcg EPIDUR Q3H PRN PRN Reason: Pain Fentanyl/Bupivacaine HCl (Fentanyl/Bupivacaine/Ns 2 Mcg-0.125% 100 Ml) 100 ml EPIDUR ASDIRECTED PRN PRN Reason: Pain Fluoxetine HCl (Prozac) 20 mg PO DAILY [facility] Last Admin: 11/05/19 10:38 Dose: Not Given Documented by: Oxytocin/Lactated Ringer's (Pitocin In Lr 10 Units/1,000 Ml) 10 unit in 1,000 mls @ 12 mls/hr IV TITRATE [facility]; Protocol Last Titration: 11/05/19 10:33 Dose: 12 munits/min, 72 mls/hr Documented by: Oxytocin/Lactated Ringer's (Pitocin In Lr 10 Units/1,000 Ml) 10 unit in 1,000 mls @ 500 mls/hr IV .CONTINUOUS [facility] Lactated Ringer's (Ringers, Lactated) 1,000 mls @ 40 mls/hr IV ASDIRECTED [facility] Last Admin: 11/05/19 08:05 Dose: 1 mls/hr Documented by: Magnesium Sulfate (Magnesium Sulfate In Water Premix) 40 gm in 1,000 mls @ 50 mls/hr IV ASDIRECTED [facility] Last Admin: 11/05/19 11:40 Dose: 50 mls/hr Documented by: Lactated Ringer's (Ringers, Lactated) 1,000 mls @ 75 mls/hr IV ASDIRECTED [facility] Last Admin: 11/05/19 11:06 Dose: 4 mls/hr Documented by: Nalbuphine HCl (Nubain) 10 mg IVPUSH Q2H PRN PRN Reason: Pain Ondansetron HCl (Zofran) 4 mg IVPUSH Q4H PRN PRN Reason: Nausea/Vomiting Last Admin: 11/05/19 11:03 Dose: 4 mg Documented by: Sodium Chloride (Saline Flush) 10 ml FLUSH ASDIRECTED PRN PRN Reason: Keep Vein Open Zolpidem Tartrate (Ambien) 5 mg PO BEDTIME PRN PRN Reason: Insomnia Discontinued Medications Fluoxetine HCl (Prozac) 20 mg PO BEDTIME [facility] Last Admin: 11/04/19 21:03 Dose: Not Given Documented by: Magnesium Sulfate 4 gm/ Premix 50 mls @ 150 mls/hr IV ONETIME ONE Stop: 11/05/19 11:08 Last Admin: 11/05/19 11:15 Dose: 150 mls/hr Documented by: Magnesium Sulfate 2 gm/ Premix 50 mls @ 300 mls/hr IV ONETIME ONE Stop: 11/05/19 10:24 Last Admin: 11/05/19 11:06 Dose: 300 mls/hr Documented by: Magnesium Sulfate (Magnesium Sulfate In Water Premix) Confirm Administered Dose 50 mls @ as directed .ROUTE .STK-MED ONE Stop: 11/05/19 10:54 Last Admin: 11/05/19 11:20 Dose: Not Given Documented by: Labetalol HCl (Normodyne) 20 mg IVPUSH ONETIME ONE; Protocol Stop: 11/05/19 08:25 Last Admin: 11/05/19 08:39 Dose: 20 mg Documented by: Misoprostol (Cytotec) 25 mcg VAG Q4H PRN PRN Reason: cervical ripening Last Admin: 11/04/19 19:20 Dose: 25 mcg Documented by: Misoprostol (Cytotec) Confirm Administered Dose 25 mcg .ROUTE .STK-MED ONE Stop: 11/04/19 19:16 Last Admin: 11/04/19 21:01 Dose: Not Given Documented by: Misoprostol (Cytotec) 25 mcg VAG Q4H PRN PRN Reason: cervical ripening Last Admin: 11/05/19 04:00 Dose: 25 mcg Documented by: Nifedipine (Procardia Xl) 60 mg PO ONETIME [facility] Last Admin: 11/05/19 07:36 Dose: 60 mg Documented by: - Uterine Contractions Uterine Monitoring Mode: External [place] Contraction Intensity: Moderate Uterine Resting Tone: Soft - Monitoring Monitor Mode: External Ultrasound Heart Rate (FHR) Baseline: 140 Heart Rate (FHR) Variability: Moderate (6-25 bmp) Accelerations: Present, 15x15 Decelerations: None Strip Review: Category I - Vaginal Exam Dilation (cm): 3-4 Effacement (Percent): 50 Station: -3 Cervical Position: Midposition - Labor Progress (Free Text) Labor Progress: Patient was started on Magnesium due to intermittent severe pressures which were increasing in frequency. Still feel likely patient's CHTN, but seemed best to be conservative and manage with IV magnesium. Will continue to treat with IV antihypertensives as needed. Patient agreeable with plan of care. Pitocin at 12. AROM just performed with release of clear fluid. Plans epidural for pain control
[2019-11-05] MEDS: Bupivacaine/fentaNYL/NS 100 ML Bag EPIDUR PRN ×2 (12:57→22:00)
--- NOTE | 2019-11-05 17:08 | PCM.PNLD ---
Labor Progress Note - VS & Meds Vital Signs: Last Vital Signs Temp 36.4 C 11/04/19 19:26 Pulse 112 H 11/04/19 19:26 Resp 16 11/04/19 19:26 BP 153/93 H 11/05/19 07:36 Pulse Ox Active Medications: Current Medications Calcium Gluconate (Calcium Gluconate) 1 gm IV ASDIRECTED PRN PRN Reason: respiratory distress Diphenhydramine HCl (Benadryl) 25 mg IVPUSH Q6H PRN PRN Reason: pruritis Ephedrine Sulfate (Ephedrine Sulfate) 5 mg IVPUSH ASDIRECTED PRN PRN Reason: Hypotension Fentanyl (Sublimaze) 100 mcg EPIDUR Q3H PRN PRN Reason: Pain Last Admin: 11/05/19 12:57 Dose: 100 mcg Documented by: Fentanyl/Bupivacaine HCl (Fentanyl/Bupivacaine/Ns 2 Mcg-0.125% 100 Ml) 100 ml EPIDUR ASDIRECTED PRN PRN Reason: Pain Last Admin: 11/05/19 12:57 Dose: 100 ml Documented by: Fluoxetine HCl (Prozac) 20 mg PO DAILY [facility] Last Admin: 11/05/19 10:38 Dose: Not Given Documented by: Oxytocin/Lactated Ringer's (Pitocin In Lr 10 Units/1,000 Ml) 10 unit in 1,000 mls @ 12 mls/hr IV TITRATE [facility]; Protocol Last Titration: 11/05/19 15:39 Dose: 20 munits/min, 120 mls/hr Documented by: Oxytocin/Lactated Ringer's (Pitocin In Lr 10 Units/1,000 Ml) 10 unit in 1,000 mls @ 500 mls/hr IV .CONTINUOUS [facility] Lactated Ringer's (Ringers, Lactated) 1,000 mls @ 40 mls/hr IV ASDIRECTED [facility] Last Admin: 11/05/19 14:43 Dose: 1 mls/hr Documented by: Magnesium Sulfate (Magnesium Sulfate In Water Premix) 40 gm in 1,000 mls @ 50 mls/hr IV ASDIRECTED [facility] Last Admin: 11/05/19 11:40 Dose: 50 mls/hr Documented by: Lactated Ringer's (Ringers, Lactated) 1,000 mls @ 75 mls/hr IV ASDIRECTED [facility] Last Infusion: 11/05/19 14:43 Dose: 1 mls/hr Documented by: Nalbuphine HCl (Nubain) 10 mg IVPUSH Q2H PRN PRN Reason: Pain Ondansetron HCl (Zofran) 4 mg IVPUSH Q4H PRN PRN Reason: Nausea/Vomiting Last Admin: 11/05/19 11:03 Dose: 4 mg Documented by: Sodium Chloride (Saline Flush) 10 ml FLUSH ASDIRECTED PRN PRN Reason: Keep Vein Open Zolpidem Tartrate (Ambien) 5 mg PO BEDTIME PRN PRN Reason: Insomnia Discontinued Medications Fluoxetine HCl (Prozac) 20 mg PO BEDTIME [facility] Last Admin: 11/04/19 21:03 Dose: Not Given Documented by: Magnesium Sulfate 4 gm/ Premix 50 mls @ 150 mls/hr IV ONETIME ONE Stop: 11/05/19 11:08 Last Admin: 11/05/19 11:15 Dose: 150 mls/hr Documented by: Magnesium Sulfate 2 gm/ Premix 50 mls @ 300 mls/hr IV ONETIME ONE Stop: 11/05/19 10:24 Last Admin: 11/05/19 11:06 Dose: 300 mls/hr Documented by: Magnesium Sulfate (Magnesium Sulfate In Water Premix) Confirm Administered Dose 50 mls @ as directed .ROUTE .STK-MED ONE Stop: 11/05/19 10:54 Last Admin: 11/05/19 11:20 Dose: Not Given Documented by: Labetalol HCl (Normodyne) 20 mg IVPUSH ONETIME ONE; Protocol Stop: 11/05/19 08:25 Last Admin: 11/05/19 08:39 Dose: 20 mg Documented by: Misoprostol (Cytotec) 25 mcg VAG Q4H PRN PRN Reason: cervical ripening Last Admin: 11/04/19 19:20 Dose: 25 mcg Documented by: Misoprostol (Cytotec) Confirm Administered Dose 25 mcg .ROUTE .STK-MED ONE Stop: 11/04/19 19:16 Last Admin: 11/04/19 21:01 Dose: Not Given Documented by: Misoprostol (Cytotec) 25 mcg VAG Q4H PRN PRN Reason: cervical ripening Last Admin: 11/05/19 04:00 Dose: 25 mcg Documented by: Nifedipine (Procardia Xl) 60 mg PO ONETIME [facility] Last Admin: 11/05/19 07:36 Dose: 60 mg Documented by: - Uterine Contractions Uterine Monitoring Mode: External [place] Contraction Intensity: Moderate Uterine Resting Tone: Soft - Monitoring Monitor Mode: External Ultrasound Heart Rate (FHR) Baseline: 140 Heart Rate (FHR) Variability: Moderate (6-25 bmp) Accelerations: Present, 15x15 Decelerations: None Strip Review: Category I - Vaginal Exam Dilation (cm): 4 Effacement (Percent): 50 Station: -3 Cervical Position: Anterior - Labor Progress (Free Text) Labor Progress: Exam shows cervix very anterior, just behind pubic bone. Pitocin at 20. IUPC placed to facilitate induction. BP's upper normal to mid-mild range since epidural complete. Continue to monitor closely. I&O's q2 hours. Continue to work towards vaginal delivery
[2019-11-05] MEDS ORDERED: Acetaminophen 325 MG Tab PO ONE (17:52)
[2019-11-05] MEDS ORDERED: Oxytocin/Lactated Ringers 20 UNIT/1,000 ML BAG IV SCH (18:45)
--- NOTE | 2019-11-05 20:03 | PCM.PNLD ---
Labor Progress Note - VS & Meds Vital Signs: Last Vital Signs Temp 36.4 C 11/04/19 19:26 Pulse 112 H 11/04/19 19:26 Resp 16 11/04/19 19:26 BP 153/93 H 11/05/19 07:36 Pulse Ox Active Medications: Current Medications Calcium Gluconate (Calcium Gluconate) 1 gm IV ASDIRECTED PRN PRN Reason: respiratory distress Diphenhydramine HCl (Benadryl) 25 mg IVPUSH Q6H PRN PRN Reason: pruritis Ephedrine Sulfate (Ephedrine Sulfate) 5 mg IVPUSH ASDIRECTED PRN PRN Reason: Hypotension Fentanyl (Sublimaze) 100 mcg EPIDUR Q3H PRN PRN Reason: Pain Last Admin: 11/05/19 12:57 Dose: 100 mcg Documented by: Fentanyl/Bupivacaine HCl (Fentanyl/Bupivacaine/Ns 2 Mcg-0.125% 100 Ml) 100 ml EPIDUR ASDIRECTED PRN PRN Reason: Pain Last Admin: 11/05/19 12:57 Dose: 100 ml Documented by: Fluoxetine HCl (Prozac) 20 mg PO DAILY [facility] Last Admin: 11/05/19 10:38 Dose: Not Given Documented by: Oxytocin/Lactated Ringer's (Pitocin In Lr 10 Units/1,000 Ml) 10 unit in 1,000 mls @ 12 mls/hr IV TITRATE [facility]; Protocol Last Titration: 11/05/19 17:35 Dose: 10 munits/min, 60 mls/hr Documented by: Oxytocin/Lactated Ringer's (Pitocin In Lr 10 Units/1,000 Ml) 10 unit in 1,000 mls @ 500 mls/hr IV .CONTINUOUS [facility] Lactated Ringer's (Ringers, Lactated) 1,000 mls @ 40 mls/hr IV ASDIRECTED [facility] Last Admin: 11/05/19 14:43 Dose: 1 mls/hr Documented by: Magnesium Sulfate (Magnesium Sulfate In Water Premix) 40 gm in 1,000 mls @ 50 mls/hr IV ASDIRECTED [facility] Last Admin: 11/05/19 11:40 Dose: 50 mls/hr Documented by: Lactated Ringer's (Ringers, Lactated) 1,000 mls @ 75 mls/hr IV ASDIRECTED [facility] Last Infusion: 11/05/19 14:43 Dose: 1 mls/hr Documented by: Oxytocin/Lactated Ringer's (Pitocin In Lr 20 Units/1,000 Ml) 20 unit in 1,000 mls @ 30 mls/hr IV TITRATE [facility]; Protocol Nalbuphine HCl (Nubain) 10 mg IVPUSH Q2H PRN PRN Reason: Pain Ondansetron HCl (Zofran) 4 mg IVPUSH Q4H PRN PRN Reason: Nausea/Vomiting Last Admin: 11/05/19 11:03 Dose: 4 mg Documented by: Sodium Chloride (Saline Flush) 10 ml FLUSH ASDIRECTED PRN PRN Reason: Keep Vein Open Zolpidem Tartrate (Ambien) 5 mg PO BEDTIME PRN PRN Reason: Insomnia Discontinued Medications Acetaminophen (Tylenol) 975 mg PO NOW ONE Stop: 11/05/19 17:53 Last Admin: 11/05/19 17:58 Dose: 975 mg Documented by: Fluoxetine HCl (Prozac) 20 mg PO BEDTIME [facility] Last Admin: 11/04/19 21:03 Dose: Not Given Documented by: Magnesium Sulfate 4 gm/ Premix 50 mls @ 150 mls/hr IV ONETIME ONE Stop: 11/05/19 11:08 Last Admin: 11/05/19 11:15 Dose: 150 mls/hr Documented by: Magnesium Sulfate 2 gm/ Premix 50 mls @ 300 mls/hr IV ONETIME ONE Stop: 11/05/19 10:24 Last Admin: 11/05/19 11:06 Dose: 300 mls/hr Documented by: Magnesium Sulfate (Magnesium Sulfate In Water Premix) Confirm Administered Dose 50 mls @ as directed .ROUTE .STK-MED ONE Stop: 11/05/19 10:54 Last Admin: 11/05/19 11:20 Dose: Not Given Documented by: Labetalol HCl (Normodyne) 20 mg IVPUSH ONETIME ONE; Protocol Stop: 11/05/19 08:25 Last Admin: 11/05/19 08:39 Dose: 20 mg Documented by: Misoprostol (Cytotec) 25 mcg VAG Q4H PRN PRN Reason: cervical ripening Last Admin: 11/04/19 19:20 Dose: 25 mcg Documented by: Misoprostol (Cytotec) Confirm Administered Dose 25 mcg .ROUTE .STK-MED ONE Stop: 11/04/19 19:16 Last Admin: 11/04/19 21:01 Dose: Not Given Documented by: Misoprostol (Cytotec) 25 mcg VAG Q4H PRN PRN Reason: cervical ripening Last Admin: 11/05/19 04:00 Dose: 25 mcg Documented by: Nifedipine (Procardia Xl) 60 mg PO ONETIME VALERIY Last Admin: 11/05/19 07:36 Dose: 60 mg Documented by: - Uterine Contractions Uterine Monitoring Mode: External Welcome Contraction Intensity: Moderate Uterine Resting Tone: Soft - Monitoring Monitor Mode: External Ultrasound Heart Rate (FHR) Baseline: 140 Heart Rate (FHR) Variability: Moderate (6-25 bmp) Accelerations: Present, 15x15 Decelerations: None Strip Review: Category I - Vaginal Exam Dilation (cm): 4-5 Effacement (Percent): 50 Station: -3 Cervical Position: Anterior - Labor Progress (Free Text) Labor Progress: Doing well. Comfortable with epidural. Pitocin was decreased down to 10, but now MVU's not adequate. Just increased to 12. status reassuring. Maternal BP's mild range. Did review that inductions can be very long. This is ok as long as maternal and status reassuring. She expressed understanding.
[2019-11-06] MEDS ORDERED: Acetaminophen 325 MG Tab PO PRN (02:12)
[2019-11-06] MEDS: Bupivacaine/fentaNYL/NS 100 ML Bag EPIDUR PRN (06:18)
[2019-11-06] MEDS: Magnesium Sulfate/Water 40 GM/1,000 ML BAG IV SCH (06:25)
[2019-11-06] MEDS ORDERED: ceFAZolin 2 GM in Premix Bag 1 BAG IV ONE (06:33)
[2019-11-06] MEDS ORDERED: ceFAZolin 1 GM in Premix Bag 1 BAG IV ONE (06:33)
[2019-11-06] MEDS ORDERED: Azithromycin 500 MG in Sodium Chloride 0.9% 250 ML IV ONE (06:33)
[2019-11-06] MEDS ORDERED: Metoclopramide 10 MG/2 ML SDV IVPUSH ONE (06:33)
[2019-11-06] MEDS ORDERED: Citric Acid/Sodium Citrate Solution 30 ML Cup PO ONE (06:33)
--- NOTE | 2019-11-06 06:46 | PCM.OPNOTE ---
- General Post-Op/Procedure Note Date of Surgery/Procedure: 11/06/19 Operative Procedure(s): Primary low transverse Findings: Baby Boy in a vertex presentation, APGARS of 9 & 9. Weight of 7 lbs 4 oz. Normal appearance of the uterus, fallopian tubes, and ovaries Pre Op Diagnosis: CHTN in . 37 weeks. FTP in 1st stage of labor Post-Op Diagnosis: Same Anesthesia Technique: Epidural Primary Surgeon: Martha Sutton Secondary Surgeon: Julieth Castellanos Anesthesia Provider: Nithya Castro Reason [employer] Superintendent Was Necessary: BMI of patient. Speed/safety of procedure Pathology: Cord blood collected. Placenta discarded Fluid Replacement, Intraop: 1,000 Output, Urine Amount: 200 EBL in mLs: 1,000 Complications: None Condition: Good Free Text/Narrative:: The risks, benefits, indications, potential complications, and alternatives were explained to the patient and informed consent obtained. After induction of anesthesia, the patient was placed in a supine position and then draped and prepped in the usual sterile manner. A Pfannenstiel incision was made and carried down through the subcutaneous tissue to the fascia. Fascial incision was made and extended transversely. The fascia was from the underlying rectus tissue superiorly and inferiorly. The peritoneum was identified and entered. Peritoneal incision was extended longitudinally. The utero-vesical peritoneal reflection was incised transversely and the bladder flap was bluntly freed from the lower uterine segment. A low transverse uterine incision was made sharply with a scalpel and extended bluntly in a cephalocaudad direction. A baby boy was delivered from a vertex presentation with APGARS as above. After the umbilical cord was clamped and cut cord blood was obtained for evaluation. The placenta was removed intact and appeared normal. The uterus was exteriorized and cleared of clots. The uterine outline, tubes and ovaries appeared normal. The uterine incision was closed with running locked sutures of 0 Vicryl. Hemostasis was obtained with a second imbricating layer of 0 vicryl. The uterus was then placed back into the abdomen. Uterine tone somewhat poor. She was given 600 mcg of buccal cytotec with good response. The infracolic gutters were cleared of blood clots. The fascia was then reapproximated with running sutures of 0 Vicryl. The subcutaneous tissue was irrigated with sterile warm normal saline, hemostasis obtained with cautery. This layer was also closed with a running 0 vicryl. The skin was reapproximated with running Subcuticular 4-0 monocryl sutures. Instrument, sponge, and needle counts were correct prior the abdominal closure and at the conclusion of the case.
--- NOTE | 2019-11-06 06:46 | PCM.SN.2 ---
- Free Text/Narrative Note: 0630 Patient doing well. Contractions have been appropriate. Exam unchanged from last studio designer at 0400 and my concerns is exam is fairly similar to my last at about 1999. Reviewed status and maternal status are reassuring. Can continue to move forward with IOL. However, if patient does not desire this she can proceed with a . Patient and given time to discuss. They would like to move forward with . Will notify Peds, OR, etc Martha Sutton MD
[2019-11-06] MEDS ORDERED: NIFEdipine 30 MG Tab.ER PO ONE (07:00)
[2019-11-06] MEDS ORDERED: Oxytocin 10 Units/1 ML SDV ONE ×2 (07:10→07:50)
[2019-11-06] MEDS ORDERED: Lactated Ringers 2,000 ML ONE (07:10)
[2019-11-06] MEDS ORDERED: Lidocaine 2% with EPINEPHrine 1:200,000 20 ML SDV ONE (07:10)
[2019-11-06] MEDS ORDERED: fentaNYL 100 MCG/2 ML SDV ONE (07:10)
[2019-11-06] MEDS ORDERED: Ondansetron 4 MG/2 ML SDV ONE (07:10)
[2019-11-06] MEDS ORDERED: Ketorolac 30 MG/ML SDV ONE (07:10)
[2019-11-06] MEDS ORDERED: ceFAZolin 1 GM Vial ONE (07:10)
[2019-11-06] MEDS ORDERED: Morphine 10 MG/ML SDV ONE (07:11)
[2019-11-06] MEDS ORDERED: Morphine PF 1 MG/ML Amp ONE (07:11)
[2019-11-06] MEDS ORDERED: diphenhydrAMINE 50 MG/ML SDV IVPUSH PRN (07:19)
[2019-11-06] MEDS ORDERED: Ondansetron 4 MG/2 ML SDV IVPUSH PRN (07:19)
[2019-11-06] MEDS ORDERED: ePHEDrine 50 MG/ML SDV IVPUSH PRN (07:19)
[2019-11-06] MEDS ORDERED: fentaNYL 100 MCG/2 ML SDV IVPUSH PRN (07:19)
[2019-11-06] MEDS ORDERED: HYDROmorphone 0.5 MG/0.5 ML Syringe IVPUSH PRN (07:20)
[2019-11-06] MEDS ORDERED: Phenylephrine 1 MG in Sodium Chloride 0.9% 10 ML IV SCH (07:30)
[2019-11-06] MEDS ORDERED: Bupivacaine 0.5% 30 ML SDV ONE (07:38)
[2019-11-06] MEDS ORDERED: Misoprostol 200 MCG Tab ONE ×2 (07:54→07:55)
--- NOTE | 2019-11-06 08:34 | PCM.POSTAN ---
POST ANESTHESIA ASSESSMENT - MENTAL STATUS Mental Status: Alert - VITAL SIGNS Vital Signs: Last Vital Signs Temp 97.4 11/04/19820 Pulse 83 11/04/1921 Resp 20 11/04/19820 BP 96/44 11/06/19820 Pulse Ox 98% 11/06/2019820 - RESPIRATORY Respiratory Status: Respiratory Rate WNL, Airway Patent, O2 Saturation Stable - CARDIOVASCULAR CV Status: Pulse Rate WNL, Blood Pressure Stable - GASTROINTESTINAL GI Status: No Symptoms - POST OP HYDRATION Hydration Status: Adequate & Stable
[2019-11-06] MEDS ORDERED: Naloxone 0.4 MG/ML SDV IVPUSH PRN (09:38)
[2019-11-06] MEDS ORDERED: Lactated Ringers 1,000 ML IV SCH (09:38)
[2019-11-06] MEDS ORDERED: Docusate Sodium 100 MG Cap PO PRN (09:38)
[2019-11-06] MEDS ORDERED: Acetaminophen/oxyCODONE 325-5 MG Tab PO PRN ×2 (09:38)
[2019-11-06] MEDS: FLUoxetine 20 MG Cap PO SCH (13:04)
[2019-11-06] MEDS: Ketorolac 30 MG/ML SDV IVPUSH SCH ×2 (15:51→21:54)
[2019-11-07] MEDS: Ketorolac 30 MG/ML SDV IVPUSH SCH (03:57)
[2019-11-07] MEDS: Magnesium Sulfate/Water 40 GM/1,000 ML BAG IV SCH (04:51)
[2019-11-07] MEDS ORDERED: NIFEdipine 30 MG Tab.ER PO SCH (07:00)
[2019-11-07] MEDS: FLUoxetine 20 MG Cap PO SCH (08:54)
[2019-11-07] MEDS: NIFEdipine 30 MG Tab.ER PO SCH (08:55)
--- NOTE | 2019-11-07 10:22 | PCM.PNPP ---
- General Info Date of Service: 11/07/19 Functional Status: Reports: Pain Controlled, Tolerating Diet, Ambulating, Urinating - Review of Systems General: Reports: No Symptoms Pulmonary: Reports: No Symptoms Cardiovascular: Reports: No Symptoms Gastrointestinal: Reports: Abdominal Pain (managed with medications ) Genitourinary: Reports: No Symptoms Musculoskeletal: Reports: No Symptoms Neurological: Reports: No Symptoms - Patient Data Vital Signs - Most Recent: Last Vital Signs Temp 36.8 C 11/06/19 23:58 Pulse 92 11/07/19 04:27 Resp 14 11/07/19 04:27 BP 130/77 11/07/19 08:55 Pulse Ox 97 11/07/19 04:27 Weight - Most Recent: 124.738 kg I&O - Last 24 Hours: Intake & Output 11/06/19 11/07/19 11/07/19 22:59 06:59 14:59 Intake Total 2000 1000 Output Total 1250 2415 Balance 750 -1415 Lab Results - Last 24 Hours: Laboratory Results - last 24 hr 11/07/19 11/07/19 Range/Units 05:37 05:37 WBC 11.32 H (3.98-10.04) K/mm3 RBC 3.13 L (3.98-5.22) M/mm3 Hgb 8.9 L D (11.2-15.7) gm/dl Hct 28.0 L (34.1-44.9) % MCV 89.5 (79.4-94.8) fl MCH 28.4 (25.6-32.2) pg MCHC 31.8 L (32.2-35.5) g/dl RDW Std Deviation 42.3 (36.4-46.3) fL Plt Count 181 L (182-369) K/mm3 MPV 10.5 (9.4-12.3) fl Sodium 138 (136-145) mEq/L Potassium 3.6 (3.5-5.1) mEq/L Chloride 105 (98-107) mEq/L Carbon Dioxide 25 (21-32) mEq/L Anion Gap 11.6 (5-15) BUN 6 L (7-18) mg/dL Creatinine 0.7 (0.55-1.02) mg/dL Est Cr Clr Drug Dosing 104.24 mL/min Estimated GFR (MDRD) > 60 (>60) mL/min BUN/Creatinine Ratio 8.6 L (14-18) Glucose 135 H (74-106) mg/dL Calcium 7.6 L D (8.5-10.1) mg/dL Total Bilirubin 0.1 L (0.2-1.0) mg/dL AST 13 L (15-37) U/L ALT 11 L (14-59) U/L Alkaline Phosphatase 81 (46-116) U/L Total Protein 5.6 L (6.4-8.2) g/dl Albumin 2.0 L (3.4-5.0) g/dl Globulin 3.6 gm/dL Albumin/Globulin Ratio 0.6 L (1-2) Med Orders - Current: Current Medications Diphenhydramine HCl (Benadryl) 25 mg IVPUSH Q6H PRN PRN Reason: pruritis Docusate Sodium (Colace) 100 mg PO Q12H PRN PRN Reason: Constipation Last Admin: 11/07/19 08:57 Dose: 100 mg Documented by: Ephedrine Sulfate (Ephedrine Sulfate) 5 mg IVPUSH ASDIRECTED PRN PRN Reason: Hypotension Fentanyl (Sublimaze) 50 mcg IVPUSH Q5M PRN PRN Reason: Pain Fluoxetine HCl (Prozac) 20 mg PO DAILY [facility] Last Admin: 11/07/19 08:54 Dose: 20 mg Documented by: Hydromorphone HCl (Dilaudid) 0.5 mg IVPUSH ONETIME PRN PRN Reason: Pain Phenylephrine HCl 1 mg/ Sodium (Chloride) 10.1 mls @ 1 mls/sec IV TITRATE [facility]; Protocol Ibuprofen (Motrin) 600 mg PO Q6H PRN PRN Reason: mild pain or fever Naloxone HCl (Narcan) 0.1 mg IVPUSH SEECOMMENT PRN PRN Reason: Respiratory Depression Nifedipine (Procardia Xl) 30 mg PO DAILY [facility] Last Admin: 11/07/19 08:55 Dose: 30 mg Documented by: Ondansetron HCl (Zofran) 4 mg IVPUSH ONETIME PRN PRN Reason: Nausea/Vomiting Oxycodone/Acetaminophen (Percocet 325-5 Mg) 1 tab PO Q4H PRN PRN Reason: Pain (moderate 4-6) Oxycodone/Acetaminophen (Percocet 325-5 Mg) 2 tab PO Q4H PRN PRN Reason: Pain (severe 7-10) Discontinued Medications Acetaminophen (Tylenol) 975 mg PO NOW ONE Stop: 11/05/19 17:53 Last Admin: 11/05/19 17:58 Dose: 975 mg Documented by: Acetaminophen (Tylenol) 650 mg PO Q6H PRN PRN Reason: Pain Last Admin: 11/06/19 02:28 Dose: 650 mg Documented by: Bupivacaine HCl (Marcaine 0.5%) Confirm Administered Dose 30 ml .ROUTE .STK-MED ONE Stop: 11/06/19 07:39 Last Admin: 11/06/19 07:40 Dose: 15 ml Documented by: Calcium Gluconate (Calcium Gluconate) 1 gm IV ASDIRECTED PRN PRN Reason: respiratory distress Cefazolin Sodium (Ancef) Confirm Administered Dose 3 gm .ROUTE .STK-MED ONE Stop: 11/06/19 07:11 Citric Acid/Sodium Citrate (Bicitra Solution) 30 ml PO ONETIME ONE Stop: 11/06/19 06:34 Last Admin: 11/06/19 06:43 Dose: 30 ml Documented by: Diphenhydramine HCl (Benadryl) 25 mg IVPUSH Q6H PRN PRN Reason: pruritis Ephedrine Sulfate (Ephedrine Sulfate) 5 mg IVPUSH ASDIRECTED PRN PRN Reason: Hypotension Fentanyl (Sublimaze) 100 mcg EPIDUR Q3H PRN PRN Reason: Pain Last Admin: 11/05/19 12:57 Dose: 100 mcg Documented by: Fentanyl (Sublimaze) Confirm Administered Dose 100 mcg .ROUTE .STK-MED ONE Stop: 11/06/19 07:11 Fentanyl/Bupivacaine HCl (Fentanyl/Bupivacaine/Ns 2 Mcg-0.125% 100 Ml) 100 ml EPIDUR ASDIRECTED PRN PRN Reason: Pain Last Admin: 11/06/19 06:18 Dose: 100 ml Documented by: Fluoxetine HCl (Prozac) 20 mg PO BEDTIME [facility] Last Admin: 11/04/19 21:03 Dose: Not Given Documented by: Fluoxetine HCl (Prozac) 20 mg PO DAILY [facility] Last Admin: 11/05/19 10:38 Dose: Not Given Documented by: Oxytocin/Lactated Ringer's (Pitocin In Lr 10 Units/1,000 Ml) 10 unit in 1,000 mls @ 12 mls/hr IV TITRATE [facility]; Protocol Last Titration: 11/05/19 19:40 Dose: 12 munits/min, 72 mls/hr Documented by: Oxytocin/Lactated Ringer's (Pitocin In Lr 10 Units/1,000 Ml) 10 unit in 1,000 mls @ 500 mls/hr IV .CONTINUOUS [facility] Lactated Ringer's (Ringers, Lactated) 1,000 mls @ 40 mls/hr IV ASDIRECTED [facility] Last Admin: 11/05/19 14:43 Dose: 1 mls/hr Documented by: Magnesium Sulfate 4 gm/ Premix 50 mls @ 150 mls/hr IV ONETIME ONE Stop: 11/05/19 11:08 Last Admin: 11/05/19 11:15 Dose: 150 mls/hr Documented by: Magnesium Sulfate 2 gm/ Premix 50 mls @ 300 mls/hr IV ONETIME ONE Stop: 11/05/19 10:24 Last Admin: 11/05/19 11:06 Dose: 300 mls/hr Documented by: Magnesium Sulfate (Magnesium Sulfate In Water Premix) 40 gm in 1,000 mls @ 50 mls/hr IV ASDIRECTED [facility] Last Admin: 11/07/19 04:51 Dose: 50 mls/hr Documented by: Magnesium Sulfate (Magnesium Sulfate In Water Premix) Confirm Administered Dose 50 mls @ as directed .ROUTE .STK-MED ONE Stop: 11/05/19 10:54 Last Admin: 11/05/19 11:20 Dose: Not Given Documented by: Lactated Ringer's (Ringers, Lactated) 1,000 mls @ 75 mls/hr IV ASDIRECTED [facility] Last Infusion: 11/05/19 14:43 Dose: 1 mls/hr Documented by: Oxytocin/Lactated Ringer's (Pitocin In Lr 20 Units/1,000 Ml) 20 unit in 1,000 mls @ 30 mls/hr IV TITRATE [facility]; Protocol Last Admin: 11/05/19 22:01 Dose: 36 mls/hr Documented by: Cefazolin Sodium/Dextrose 2 gm (/ Premix) 50 mls @ 100 mls/hr IV ONETIME ONE Stop: 11/06/19 07:02 Cefazolin Sodium/Dextrose 1 gm (/ Premix) 50 mls @ 100 mls/hr IV ONETIME ONE Stop: 11/06/19 07:02 Last Admin: 11/07/19 08:58 Dose: Not Given Documented by: Azithromycin 500 mg/ Sodium (Chloride) 250 mls @ 250 mls/hr IV ONETIME ONE Stop: 11/06/19 07:32 Last Admin: 11/06/19 07:01 Dose: 250 mls/hr Documented by: Lactated Ringer's (Ringers, Lactated) Confirm Administered Dose 2,000 mls @ as directed .ROUTE .STK-MED ONE Stop: 11/06/19 07:11 Lactated Ringer's (Ringers, Lactated) 1,000 mls @ 75 mls/hr IV ASDIRECTED [facility] Last Admin: 11/06/19 19:12 Dose: 75 mls/hr Documented by: Ketorolac Tromethamine (Toradol) Confirm Administered Dose 30 mg .ROUTE .STK-MED ONE Stop: 11/06/19 07:11 Ketorolac Tromethamine (Toradol) 30 mg IVPUSH Q6H [facility] Stop: 11/07/19 04:01 Last Admin: 11/07/19 03:57 Dose: 30 mg Documented by: Labetalol HCl (Normodyne) 20 mg IVPUSH ONETIME ONE; Protocol Stop: 11/05/19 08:25 Last Admin: 11/05/19 08:39 Dose: 20 mg Documented by: Lidocaine/Epinephrine (Xylocaine-Mpf 2%-Epi 1:200,000) Confirm Administered Dose 20 ml .ROUTE .STK-MED ONE Stop: 11/06/19 07:11 Metoclopramide HCl (Reglan) 10 mg IVPUSH ONETIME ONE Stop: 11/06/19 06:34 Last Admin: 11/06/19 06:43 Dose: 10 mg Documented by: Miscellaneous Medication (Phenylephrine 1 Mg/10 Ml-Ns) Confirm Administered Dose 1 mg IV .STK-MED ONE Stop: 11/06/19 07:11 Misoprostol (Cytotec) 25 mcg VAG Q4H PRN PRN Reason: cervical ripening Last Admin: 11/04/19 19:20 Dose: 25 mcg Documented by: Misoprostol (Cytotec) Confirm Administered Dose 25 mcg .ROUTE .STK-MED ONE Stop: 11/04/19 19:16 Last Admin: 11/04/19 21:01 Dose: Not Given Documented by: Misoprostol (Cytotec) 25 mcg VAG Q4H PRN PRN Reason: cervical ripening Last Admin: 11/05/19 04:00 Dose: 25 mcg Documented by: Misoprostol (Cytotec) Confirm Administered Dose 200 mcg .ROUTE .STK-MED ONE Stop: 11/06/19 07:55 Misoprostol (Cytotec) Confirm Administered Dose 400 mcg .ROUTE .STK-MED ONE Stop: 11/06/19 07:56 Last Admin: 11/06/19 08:10 Dose: 600 mcg Documented by: Morphine Sulfate (Morphine) Confirm Administered Dose 0 mg .ROUTE .STK-MED ONE Stop: 11/06/19 07:12 Morphine Sulfate (Duramorph Pf) Confirm Administered Dose 1 mg .ROUTE .STK-MED ONE Stop: 11/06/19 07:12 Nalbuphine HCl (Nubain) 10 mg IVPUSH Q2H PRN PRN Reason: Pain Nifedipine (Procardia Xl) 60 mg PO ONETIME [facility] Last Admin: 11/05/19 07:36 Dose: 60 mg Documented by: Nifedipine (Procardia Xl) 60 mg PO ONETIME ONE Stop: 11/06/19 07:01 Last Admin: 11/06/19 07:01 Dose: 60 mg Documented by: Nifedipine (Procardia Xl) 60 mg PO DAILY [facility] Ondansetron HCl (Zofran) 4 mg IVPUSH Q4H PRN PRN Reason: Nausea/Vomiting Last Admin: 11/05/19 11:03 Dose: 4 mg Documented by: Ondansetron HCl (Zofran) Confirm Administered Dose 4 mg .ROUTE .STK-MED ONE Stop: 11/06/19 07:11 Oxytocin (Pitocin) Confirm Administered Dose 10 unit .ROUTE .STK-MED ONE Stop: 11/06/19 07:11 Oxytocin (Pitocin) Confirm Administered Dose 10 unit .ROUTE .STK-MED ONE Stop: 11/06/19 07:51 Sodium Chloride (Saline Flush) 10 ml FLUSH ASDIRECTED PRN PRN Reason: Keep Vein Open Zolpidem Tartrate (Ambien) 5 mg PO BEDTIME PRN PRN Reason: Insomnia Last Admin: 11/06/19 02:30 Dose: 5 mg Documented by: - Interaction Disposition, : in Room with Family Interaction: Holding Infant Feeding: Attempted ; Nursed Fair/Poor Support Person: - Recovery Exam Fundal Tone: Firm Fundal Level: 1 Fingerbreadths Below Umbilicus Fundal Placement: Midline Lochia Amount: Small Lochia Color: Rubra/Red Perineum Description: Intact, Minimal Bruising/Swelling Episiotomy/Laceration: None Bladder Status: Indwelling Catheter in Place - Exam General: Alert, Oriented, Cooperative Lungs: Clear to Auscultation, Normal Respiratory Effort Cardiovascular: Regular Rate, Regular Rhythm GI/Abdominal Exam: Soft, Tender (appropriate post op ) Extremities: Normal Inspection Skin: Warm, Dry, Intact Wound/Incisions: Healing Well, No Drainage - Problem List & Annotations (1) Chronic hypertension affecting SNOMED Code(s): 33955350 Code(s): O10.919 - UNSP PRE-EXISTING HTN COMP , UNSP TRIMESTER Status: Acute Current Visit: Yes (2) 37 weeks gestation of SNOMED Code(s): 88648348 Code(s): Z3A.37 - 37 WEEKS GESTATION OF Status: Acute Current Visit: Yes - Problem List Review Problem List Initiated/Reviewed/Updated: Yes - My Orders Last 24 Hours: My Active Orders 11/06/19 09:38 Acetaminophen/oxyCODONE [Percocet 325-5 MG] 1 tab PO Q4H PRN Acetaminophen/oxyCODONE [Percocet 325-5 MG] 2 tab PO Q4H PRN Docusate Sodium [Colace] 100 mg PO Q12H PRN Naloxone [Narcan] 0.1 mg IVPUSH SEECOMMENT PRN 11/06/19 09:38 Activity as Tolerated [RC] .Routine Communication Order [RC] PER UNIT ROUTINE Intake and Output [RC] Q4HR Notify Provider Intake and Out [RC] ASDIRECTED RT Incentive Spirometry [RC] Q2HWA Vital Signs [RC] Q4HR Assess Lochia [WOMSER] Per Unit Routine Assess Uterine Involution [WOMSER] Per Unit Routine Breast Pump [WOMSER] Per Unit Routine 11/06/19 16:00 Ibuprofen [Motrin] 600 mg PO Q6H PRN 11/07/19 08:30 Urinary Catheter Removal [RC] Per Unit Routine 11/07/19 09:00 NIFEdipine [Procardia XL] 30 mg PO DAILY - Assessment Assessment:: POD#1 - Plan Plan:: * Patient with normal BP's overnight. UOP excellent. Stop magnesium at 24 hours * Decrease home Procardia to 30 mg, started this AM * Routine post op cares * Continue home Prozac * Discharge home in 1-2 days
[2019-11-07] MEDS: Ibuprofen 600 MG Tab PO PRN ×2 (10:44→17:47)
--- NOTE | 2019-11-07 10:57 | PCM48HPAN ---
Post Anesthesia Note - EVALUATION WITHIN 48HRS OF ANESTHETIC Vital Signs in Normal Range: Yes Patient Participated in Evaluation: Yes Respiratory Function Stable: Yes Airway Patent: Yes Cardiovascular Function Stable: Yes Hydration Status Stable: Yes Pain Control Satisfactory: Yes Nausea and Vomiting Control Satisfactory: Yes Mental Status Recovered: Yes Vital Signs: Last Vital Signs Temp 98.2 F 11/06/19 23:58 Pulse 92 11/07/19 04:27 Resp 14 11/07/19 04:27 BP 130/77 11/07/19 08:55 Pulse Ox 97 11/07/19 04:27 - COMMENTS/OBSERVATIONS Free Text/Narrative:: Sitting up in chair pumping. No complaints
--- NOTE | 2019-11-08 00:05 | PCM.PNPP ---
- General Info Date of Service: 11/08/19 Functional Status: Reports: Pain Controlled, Tolerating Diet, Ambulating, Urinating - Review of Systems General: Reports: No Symptoms Pulmonary: Reports: No Symptoms Cardiovascular: Reports: No Symptoms Gastrointestinal: Reports: No Symptoms Genitourinary: Reports: No Symptoms Musculoskeletal: Reports: No Symptoms Neurological: Reports: No Symptoms - General Info Date of Service: 11/08/19 - Patient Data Vital Signs - Most Recent: Last Vital Signs Temp 36.4 C 11/07/19 21:29 Pulse 91 11/07/19 21:29 Resp 14 11/07/19 21:29 BP 141/79 H 11/07/19 21:29 Pulse Ox 98 11/07/19 21:29 Weight - Most Recent: 124.738 kg I&O - Last 24 Hours: Intake & Output 11/07/19 11/07/19 11/08/19 14:59 22:59 06:59 Intake Total 360 Output Total 2100 1000 Balance -2100 -640 Lab Results - Last 24 Hours: Laboratory Results - last 24 hr 11/07/19 11/07/19 Range/Units 05:37 05:37 WBC 11.32 H (3.98-10.04) K/mm3 RBC 3.13 L (3.98-5.22) M/mm3 Hgb 8.9 L D (11.2-15.7) gm/dl Hct 28.0 L (34.1-44.9) % MCV 89.5 (79.4-94.8) fl MCH 28.4 (25.6-32.2) pg MCHC 31.8 L (32.2-35.5) g/dl RDW Std Deviation 42.3 (36.4-46.3) fL Plt Count 181 L (182-369) K/mm3 MPV 10.5 (9.4-12.3) fl Sodium 138 (136-145) mEq/L Potassium 3.6 (3.5-5.1) mEq/L Chloride 105 (98-107) mEq/L Carbon Dioxide 25 (21-32) mEq/L Anion Gap 11.6 (5-15) BUN 6 L (7-18) mg/dL Creatinine 0.7 (0.55-1.02) mg/dL Est Cr Clr Drug Dosing 104.24 mL/min Estimated GFR (MDRD) > 60 (>60) mL/min BUN/Creatinine Ratio 8.6 L (14-18) Glucose 135 H (74-106) mg/dL Calcium 7.6 L D (8.5-10.1) mg/dL Total Bilirubin 0.1 L (0.2-1.0) mg/dL AST 13 L (15-37) U/L ALT 11 L (14-59) U/L Alkaline Phosphatase 81 (46-116) U/L Total Protein 5.6 L (6.4-8.2) g/dl Albumin 2.0 L (3.4-5.0) g/dl Globulin 3.6 gm/dL Albumin/Globulin Ratio 0.6 L (1-2) Med Orders - Current: Current Medications Diphenhydramine HCl (Benadryl) 25 mg IVPUSH Q6H PRN PRN Reason: pruritis Docusate Sodium (Colace) 100 mg PO Q12H PRN PRN Reason: Constipation Last Admin: 11/07/19 08:57 Dose: 100 mg Documented by: Fluoxetine HCl (Prozac) 20 mg PO DAILY [facility] Last Admin: 11/07/19 08:54 Dose: 20 mg Documented by: Ibuprofen (Motrin) 600 mg PO Q6H PRN PRN Reason: mild pain or fever Last Admin: 11/07/19 17:47 Dose: 600 mg Documented by: Nifedipine (Procardia Xl) 30 mg PO DAILY [facility] Last Admin: 11/07/19 08:55 Dose: 30 mg Documented by: Ondansetron HCl (Zofran) 4 mg IVPUSH ONETIME PRN PRN Reason: Nausea/Vomiting Oxycodone/Acetaminophen (Percocet 325-5 Mg) 1 tab PO Q4H PRN PRN Reason: Pain (moderate 4-6) Oxycodone/Acetaminophen (Percocet 325-5 Mg) 2 tab PO Q4H PRN PRN Reason: Pain (severe 7-10) Discontinued Medications Acetaminophen (Tylenol) 975 mg PO NOW ONE Stop: 11/05/19 17:53 Last Admin: 11/05/19 17:58 Dose: 975 mg Documented by: Acetaminophen (Tylenol) 650 mg PO Q6H PRN PRN Reason: Pain Last Admin: 11/06/19 02:28 Dose: 650 mg Documented by: Bupivacaine HCl (Marcaine 0.5%) Confirm Administered Dose 30 ml .ROUTE .[facility] ONE Stop: 11/06/19 07:39 Last Admin: 11/06/19 07:40 Dose: 15 ml Documented by: Calcium Gluconate (Calcium Gluconate) 1 gm IV ASDIRECTED PRN PRN Reason: respiratory distress Cefazolin Sodium (Ancef) Confirm Administered Dose 3 gm .ROUTE .[facility] ONE Stop: 11/06/19 07:11 Citric Acid/Sodium Citrate (Bicitra Solution) 30 ml PO ONETIME ONE Stop: 11/06/19 06:34 Last Admin: 11/06/19 06:43 Dose: 30 ml Documented by: Diphenhydramine HCl (Benadryl) 25 mg IVPUSH Q6H PRN PRN Reason: pruritis Ephedrine Sulfate (Ephedrine Sulfate) 5 mg IVPUSH ASDIRECTED PRN PRN Reason: Hypotension Ephedrine Sulfate (Ephedrine Sulfate) 5 mg IVPUSH ASDIRECTED PRN PRN Reason: Hypotension Fentanyl (Sublimaze) 100 mcg EPIDUR Q3H PRN PRN Reason: Pain Last Admin: 11/05/19 12:57 Dose: 100 mcg Documented by: Fentanyl (Sublimaze) Confirm Administered Dose 100 mcg .ROUTE .[facility] ONE Stop: 11/06/19 07:11 Fentanyl (Sublimaze) 50 mcg IVPUSH Q5M PRN PRN Reason: Pain Fentanyl/Bupivacaine HCl (Fentanyl/Bupivacaine/Ns 2 Mcg-0.125% 100 Ml) 100 ml EPIDUR ASDIRECTED PRN PRN Reason: Pain Last Admin: 11/06/19 06:18 Dose: 100 ml Documented by: Fluoxetine HCl (Prozac) 20 mg PO BEDTIME [facility] Last Admin: 11/04/19 21:03 Dose: Not Given Documented by: Fluoxetine HCl (Prozac) 20 mg PO DAILY [facility] Last Admin: 11/05/19 10:38 Dose: Not Given Documented by: Hydromorphone HCl (Dilaudid) 0.5 mg IVPUSH ONETIME PRN PRN Reason: Pain Oxytocin/Lactated Ringer's (Pitocin In Lr 10 Units/1,000 Ml) 10 unit in 1,000 mls @ 12 mls/hr IV TITRATE [facility]; Protocol Last Titration: 11/05/19 19:40 Dose: 12 munits/min, 72 mls/hr Documented by: Oxytocin/Lactated Ringer's (Pitocin In Lr 10 Units/1,000 Ml) 10 unit in 1,000 mls @ 500 mls/hr IV .CONTINUOUS [facility] Lactated Ringer's (Ringers, Lactated) 1,000 mls @ 40 mls/hr IV ASDIRECTED [facility] Last Admin: 11/05/19 14:43 Dose: 1 mls/hr Documented by: Magnesium Sulfate 4 gm/ Premix 50 mls @ 150 mls/hr IV ONETIME ONE Stop: 11/05/19 11:08 Last Admin: 11/05/19 11:15 Dose: 150 mls/hr Documented by: Magnesium Sulfate 2 gm/ Premix 50 mls @ 300 mls/hr IV ONETIME ONE Stop: 11/05/19 10:24 Last Admin: 11/05/19 11:06 Dose: 300 mls/hr Documented by: Magnesium Sulfate (Magnesium Sulfate In Water Premix) 40 gm in 1,000 mls @ 50 mls/hr IV ASDIRECTED [facility] Last Admin: 11/07/19 04:51 Dose: 50 mls/hr Documented by: Magnesium Sulfate (Magnesium Sulfate In Water Premix) Confirm Administered Dose 50 mls @ as directed .ROUTE .STK-MED ONE Stop: 11/05/19 10:54 Last Admin: 11/05/19 11:20 Dose: Not Given Documented by: Lactated Ringer's (Ringers, Lactated) 1,000 mls @ 75 mls/hr IV ASDIRECTED [facility] Last Infusion: 11/05/19 14:43 Dose: 1 mls/hr Documented by: Oxytocin/Lactated Ringer's (Pitocin In Lr 20 Units/1,000 Ml) 20 unit in 1,000 mls @ 30 mls/hr IV TITRATE [facility]; Protocol Last Admin: 11/05/19 22:01 Dose: 36 mls/hr Documented by: Cefazolin Sodium/Dextrose 2 gm (/ Premix) 50 mls @ 100 mls/hr IV ONETIME ONE Stop: 11/06/19 07:02 Last Admin: 11/07/19 10:55 Dose: Not Given Documented by: Cefazolin Sodium/Dextrose 1 gm (/ Premix) 50 mls @ 100 mls/hr IV ONETIME ONE Stop: 11/06/19 07:02 Last Admin: 11/07/19 08:58 Dose: Not Given Documented by: Azithromycin 500 mg/ Sodium (Chloride) 250 mls @ 250 mls/hr IV ONETIME ONE Stop: 11/06/19 07:32 Last Admin: 11/06/19 07:01 Dose: 250 mls/hr Documented by: Lactated Ringer's (Ringers, Lactated) Confirm Administered Dose 2,000 mls @ as directed .ROUTE .STK-MED ONE Stop: 11/06/19 07:11 Phenylephrine HCl 1 mg/ Sodium (Chloride) 10.1 mls @ 1 mls/sec IV TITRATE [facility]; Protocol Lactated Ringer's (Ringers, Lactated) 1,000 mls @ 75 mls/hr IV ASDIRECTED [facility] Last Admin: 11/06/19 19:12 Dose: 75 mls/hr Documented by: Ketorolac Tromethamine (Toradol) Confirm Administered Dose 30 mg .ROUTE .STK-MED ONE Stop: 11/06/19 07:11 Ketorolac Tromethamine (Toradol) 30 mg IVPUSH Q6H [facility] Stop: 11/07/19 04:01 Last Admin: 11/07/19 03:57 Dose: 30 mg Documented by: Labetalol HCl (Normodyne) 20 mg IVPUSH ONETIME ONE; Protocol Stop: 11/05/19 08:25 Last Admin: 11/05/19 08:39 Dose: 20 mg Documented by: Lidocaine/Epinephrine (Xylocaine-Mpf 2%-Epi 1:200,000) Confirm Administered Dose 20 ml .ROUTE .STK-MED ONE Stop: 11/06/19 07:11 Metoclopramide HCl (Reglan) 10 mg IVPUSH ONETIME ONE Stop: 11/06/19 06:34 Last Admin: 11/06/19 06:43 Dose: 10 mg Documented by: Miscellaneous Medication (Phenylephrine 1 Mg/10 Ml-Ns) Confirm Administered Dose 1 mg IV .STK-MED ONE Stop: 11/06/19 07:11 Misoprostol (Cytotec) 25 mcg VAG Q4H PRN PRN Reason: cervical ripening Last Admin: 11/04/19 19:20 Dose: 25 mcg Documented by: Misoprostol (Cytotec) Confirm Administered Dose 25 mcg .ROUTE .STK-MED ONE Stop: 11/04/19 19:16 Last Admin: 11/04/19 21:01 Dose: Not Given Documented by: Misoprostol (Cytotec) 25 mcg VAG Q4H PRN PRN Reason: cervical ripening Last Admin: 11/05/19 04:00 Dose: 25 mcg Documented by: Misoprostol (Cytotec) Confirm Administered Dose 200 mcg .ROUTE .STK-MED ONE Stop: 11/06/19 07:55 Misoprostol (Cytotec) Confirm Administered Dose 400 mcg .ROUTE .STK-MED ONE Stop: 11/06/19 07:56 Last Admin: 11/06/19 08:10 Dose: 600 mcg Documented by: Morphine Sulfate (Morphine) Confirm Administered Dose 0 mg .ROUTE .STK-MED ONE Stop: 11/06/19 07:12 Morphine Sulfate (Duramorph Pf) Confirm Administered Dose 1 mg .ROUTE .STK-MED ONE Stop: 11/06/19 07:12 Nalbuphine HCl (Nubain) 10 mg IVPUSH Q2H PRN PRN Reason: Pain Naloxone HCl (Narcan) 0.1 mg IVPUSH SEECOMMENT PRN PRN Reason: Respiratory Depression Nifedipine (Procardia Xl) 60 mg PO ONETIME [facility] Last Admin: 11/05/19 07:36 Dose: 60 mg Documented by: Nifedipine (Procardia Xl) 60 mg PO ONETIME ONE Stop: 11/06/19 07:01 Last Admin: 11/06/19 07:01 Dose: 60 mg Documented by: Nifedipine (Procardia Xl) 60 mg PO DAILY [facility] Last Admin: 11/07/19 10:57 Dose: Not Given Documented by: Ondansetron HCl (Zofran) 4 mg IVPUSH Q4H PRN PRN Reason: Nausea/Vomiting Last Admin: 11/05/19 11:03 Dose: 4 mg Documented by: Ondansetron HCl (Zofran) Confirm Administered Dose 4 mg .ROUTE .STK-MED ONE Stop: 11/06/19 07:11 Oxytocin (Pitocin) Confirm Administered Dose 10 unit .ROUTE .STK-MED ONE Stop: 11/06/19 07:11 Oxytocin (Pitocin) Confirm Administered Dose 10 unit .ROUTE .STK-MED ONE Stop: 11/06/19 07:51 Sodium Chloride (Saline Flush) 10 ml FLUSH ASDIRECTED PRN PRN Reason: Keep Vein Open Zolpidem Tartrate (Ambien) 5 mg PO BEDTIME PRN PRN Reason: Insomnia Last Admin: 11/06/19 02:30 Dose: 5 mg Documented by: - Infant Interaction Infant Disposition, : [place] in Room with Family Infant Interaction: Holding Infant Feeding: Attempted ; Nursed Fair/Poor Support Person: - Recovery Exam Fundal Tone: Firm Fundal Level: 1 Fingerbreadths Below Umbilicus Fundal Placement: Midline Lochia Amount: Scant, Small Lochia Color: Rubra/Red Perineum Description: Intact, Minimal Bruising/Swelling Episiotomy/Laceration: None Bladder Status: Nonpalpable, Voiding Urinary Elimination: Voided - Exam General: Alert, Oriented, Cooperative Lungs: Clear to Auscultation, Normal Respiratory Effort Cardiovascular: Regular Rate, Regular Rhythm GI/Abdominal Exam: Soft, Tender (appropraite post op ) Skin: Warm, Dry, Intact Wound/Incisions: Healing Well, No Drainage - Problem List & Annotations (1) Chronic hypertension affecting SNOMED Code(s): 44014518 Code(s): O10.919 - UNSP PRE-EXISTING HTN COMP , UNSP TRIMESTER Status: Acute Current Visit: Yes (2) 37 weeks gestation of SNOMED Code(s): 64031532 Code(s): Z3A.37 - 37 WEEKS GESTATION OF Status: Acute Current Visit: Yes (3) Failure to progress in first stage of labor SNOMED Code(s): 307918466 Code(s): KPI5036 - Status: Acute Current Visit: Yes (4) S/P primary low transverse SNOMED Code(s): 521429177, 59876026, 274233102, 103948804, 962818063 Code(s): Z98.891 - HISTORY OF UTERINE SCAR FROM PREVIOUS SURGERY Status: Acute Current Visit: Yes - Problem List Review Problem List Initiated/Reviewed/Updated: Yes - My Orders Last 24 Hours: My Active Orders 11/07/19 09:00 NIFEdipine [Procardia XL] 30 mg PO DAILY - Assessment Assessment:: POD#2 - Plan Plan:: * BPs normal to mild range - Procardia 30 mg daily * BP check in 1 week * Continue home Prozac * Discharge home today
[2019-11-08] MEDS: Ibuprofen 600 MG Tab PO PRN (00:22)
[2019-11-08] MEDS: FLUoxetine 20 MG Cap PO SCH ×2 (07:22→12:28)
[2019-11-08] MEDS: NIFEdipine 30 MG Tab.ER PO SCH ×2 (07:22→12:28)
--- NOTE | 2019-11-08 07:23 | PCM.DCSUM1 ---
Discharge Summary - Discharge Data Discharge Date: 11/08/19 Discharge Disposition: Home, Self-Care 01 Condition: Good - Referral to Home Health Primary Care Physician: Martha Sutton MD - Discharge Diagnosis/Problem(s) (1) Chronic hypertension affecting SNOMED Code(s): 41942559 ICD Code: O10.919 - UNSP PRE-EXISTING HTN COMP , UNSP TRIMESTER Status: Acute Current Visit: Yes (2) 37 weeks gestation of SNOMED Code(s): 64094157 ICD Code: Z3A.37 - 37 WEEKS GESTATION OF Status: Acute Current Visit: Yes (3) Failure to progress in first stage of labor SNOMED Code(s): 052947695 ICD Code: PTO6942 - Status: Acute Current Visit: Yes (4) S/P primary low transverse SNOMED Code(s): 634765765, 07115110, 146392440, 046751251, 779289451 ICD Code: Z98.891 - HISTORY OF UTERINE SCAR FROM PREVIOUS SURGERY Status: Acute Current Visit: Yes - Patient Summary/Data Operative Procedure(s) Performed: Primary low transverse Complications: None Consults: None Recommended Follow-up Testing/Procedures: Follow up in 1 week for BP check and 3 weeks for check Hospital Course: 29 y/o at 37 0/7 wks presented for IOL for worsening CHTN in . IOL started with cytotec. and gunn bulb. BP's did trend more into severe range as induction continued and so she was started on magnesium. Eventually underwent AROM and pitocin augmentation, but despite adequate contractions by IUPC was not able to progress past about 5 cm. She was counseled on options and opted to proceed with PLTCS. Surgery was uncomplicated. See operative note. she was maintained on magnesium for 24 hours which was then discontinued. She otherwise did well and was discharged home on PPD#2 - Patient Instructions Diet: Regular Diet as Tolerated Activity: No Lifting Over 10 Pounds Activity, Other: Pelvic rest for 6 weeks Driving: Do Not Drive (while taking narcotics ) Showering/Bathing: May Shower, No Tub Bathing/Swimming Wound/Incision Care: Keep Operative Site/Wound Site Clean and Dry Notify Provider of: Fever, Increased Pain, Swelling and Redness, Drainage, Nausea and/or Vomiting - Discharge Plan *PRESCRIPTION DRUG MONITORING PROGRAM REVIEWED*: No *COPY OF PRESCRIPTION DRUG MONITORING REPORT IN PATIENT DALLIN: No Prescriptions/Med Rec: Acetaminophen/oxyCODONE [Percocet 325-5 MG] 1 - 2 tab PO Q6H PRN #25 tablet PRN Reason: Pain (Severe 7-10) Home Medications: Home Meds Prenat 115/Iron Fum/Folic/Dss [ 19 Tablet] 1 each PO DAILY 10/20/19 [History] FLUoxetine HCl [Prozac] 20 mg PO DAILY 11/04/19 [History] Acetaminophen/oxyCODONE [Percocet 325-5 MG] 1 - 2 tab PO Q6H PRN #25 tablet 11/08/19 [Rx] Docusate Sodium [Colace] 100 mg PO Q12H PRN cap 11/08/19 [Rx] Ibuprofen [Motrin] 600 mg PO Q6H PRN tablet 11/08/19 [Rx] NIFEdipine [Procardia XL] 30 mg PO DAILY tab.er 11/08/19 [Rx] Patient Handouts: Preeclampsia and Eclampsia, Mastitis, Hypertension, Care After Delivery, Breast Engorgement Referrals: Martha Sutton MD [Primary Care Provider] - (1 week BP check - RN only 3 weeks check ) - Discharge Summary/Plan Comment DC Time >30 min.: No - Patient Data Vitals - Most Recent: Last Vital Signs Temp 35.6 C L 11/08/19 02:48 Pulse 91 11/08/19 02:48 Resp 14 11/08/19 02:48 BP 152/90 H 11/08/19 07:22 Pulse Ox 97 11/08/19 02:48 Weight - Most Recent: 124.738 kg I&O - Last 24 hours: Intake & Output 11/07/19 11/08/19 11/08/19 22:59 06:59 14:59 Intake Total 360 Output Total 1000 Balance -640 Med Orders - Current: Current Medications Diphenhydramine HCl (Benadryl) 25 mg IVPUSH Q6H PRN PRN Reason: pruritis Docusate Sodium (Colace) 100 mg PO Q12H PRN PRN Reason: Constipation Last Admin: 11/07/19 08:57 Dose: 100 mg Documented by: Fluoxetine HCl (Prozac) 20 mg PO DAILY [facility] Last Admin: 11/08/19 07:22 Dose: 20 mg Documented by: Ibuprofen (Motrin) 600 mg PO Q6H PRN PRN Reason: mild pain or fever Last Admin: 11/08/19 00:22 Dose: 600 mg Documented by: Nifedipine (Procardia Xl) 30 mg PO DAILY [facility] Last Admin: 11/08/19 07:22 Dose: 30 mg Documented by: Ondansetron HCl (Zofran) 4 mg IVPUSH ONETIME PRN PRN Reason: Nausea/Vomiting Oxycodone/Acetaminophen (Percocet 325-5 Mg) 1 tab PO Q4H PRN PRN Reason: Pain (moderate 4-6) Oxycodone/Acetaminophen (Percocet 325-5 Mg) 2 tab PO Q4H PRN PRN Reason: Pain (severe 7-10) Discontinued Medications Acetaminophen (Tylenol) 975 mg PO NOW ONE Stop: 11/05/19 17:53 Last Admin: 11/05/19 17:58 Dose: 975 mg Documented by: Acetaminophen (Tylenol) 650 mg PO Q6H PRN PRN Reason: Pain Last Admin: 11/06/19 02:28 Dose: 650 mg Documented by: Bupivacaine HCl (Marcaine 0.5%) Confirm Administered Dose 30 ml .ROUTE .STK-MED ONE Stop: 11/06/19 07:39 Last Admin: 11/06/19 07:40 Dose: 15 ml Documented by: Calcium Gluconate (Calcium Gluconate) 1 gm IV ASDIRECTED PRN PRN Reason: respiratory distress Cefazolin Sodium (Ancef) Confirm Administered Dose 3 gm .ROUTE .STK-MED ONE Stop: 11/06/19 07:11 Citric Acid/Sodium Citrate (Bicitra Solution) 30 ml PO ONETIME ONE Stop: 11/06/19 06:34 Last Admin: 11/06/19 06:43 Dose: 30 ml Documented by: Diphenhydramine HCl (Benadryl) 25 mg IVPUSH Q6H PRN PRN Reason: pruritis Ephedrine Sulfate (Ephedrine Sulfate) 5 mg IVPUSH ASDIRECTED PRN PRN Reason: Hypotension Ephedrine Sulfate (Ephedrine Sulfate) 5 mg IVPUSH ASDIRECTED PRN PRN Reason: Hypotension Fentanyl (Sublimaze) 100 mcg EPIDUR Q3H PRN PRN Reason: Pain Last Admin: 11/05/19 12:57 Dose: 100 mcg Documented by: Fentanyl (Sublimaze) Confirm Administered Dose 100 mcg .ROUTE .STK-MED ONE Stop: 11/06/19 07:11 Fentanyl (Sublimaze) 50 mcg IVPUSH Q5M PRN PRN Reason: Pain Fentanyl/Bupivacaine HCl (Fentanyl/Bupivacaine/Ns 2 Mcg-0.125% 100 Ml) 100 ml EPIDUR ASDIRECTED PRN PRN Reason: Pain Last Admin: 11/06/19 06:18 Dose: 100 ml Documented by: Fluoxetine HCl (Prozac) 20 mg PO BEDTIME [facility] Last Admin: 11/04/19 21:03 Dose: Not Given Documented by: Fluoxetine HCl (Prozac) 20 mg PO DAILY [facility] Last Admin: 11/05/19 10:38 Dose: Not Given Documented by: Hydromorphone HCl (Dilaudid) 0.5 mg IVPUSH ONETIME PRN PRN Reason: Pain Oxytocin/Lactated Ringer's (Pitocin In Lr 10 Units/1,000 Ml) 10 unit in 1,000 mls @ 12 mls/hr IV TITRATE [facility]; Protocol Last Titration: 11/05/19 19:40 Dose: 12 munits/min, 72 mls/hr Documented by: Oxytocin/Lactated Ringer's (Pitocin In Lr 10 Units/1,000 Ml) 10 unit in 1,000 mls @ 500 mls/hr IV .CONTINUOUS [facility] Lactated Ringer's (Ringers, Lactated) 1,000 mls @ 40 mls/hr IV ASDIRECTED [facility] Last Admin: 11/05/19 14:43 Dose: 1 mls/hr Documented by: Magnesium Sulfate 4 gm/ Premix 50 mls @ 150 mls/hr IV ONETIME ONE Stop: 11/05/19 11:08 Last Admin: 11/05/19 11:15 Dose: 150 mls/hr Documented by: Magnesium Sulfate 2 gm/ Premix 50 mls @ 300 mls/hr IV ONETIME ONE Stop: 11/05/19 10:24 Last Admin: 11/05/19 11:06 Dose: 300 mls/hr Documented by: Magnesium Sulfate (Magnesium Sulfate In Water Premix) 40 gm in 1,000 mls @ 50 mls/hr IV ASDIRECTED [facility] Last Admin: 11/07/19 04:51 Dose: 50 mls/hr Documented by: Magnesium Sulfate (Magnesium Sulfate In Water Premix) Confirm Administered Dose 50 mls @ as directed .ROUTE .STK-MED ONE Stop: 11/05/19 10:54 Last Admin: 11/05/19 11:20 Dose: Not Given Documented by: Lactated Ringer's (Ringers, Lactated) 1,000 mls @ 75 mls/hr IV ASDIRECTED [facility] Last Infusion: 11/05/19 14:43 Dose: 1 mls/hr Documented by: Oxytocin/Lactated Ringer's (Pitocin In Lr 20 Units/1,000 Ml) 20 unit in 1,000 mls @ 30 mls/hr IV TITRATE [facility]; Protocol Last Admin: 11/05/19 22:01 Dose: 36 mls/hr Documented by: Cefazolin Sodium/Dextrose 2 gm (/ Premix) 50 mls @ 100 mls/hr IV ONETIME ONE Stop: 11/06/19 07:02 Last Admin: 11/07/19 10:55 Dose: Not Given Documented by: Cefazolin Sodium/Dextrose 1 gm (/ Premix) 50 mls @ 100 mls/hr IV ONETIME ONE Stop: 11/06/19 07:02 Last Admin: 11/07/19 08:58 Dose: Not Given Documented by: Azithromycin 500 mg/ Sodium (Chloride) 250 mls @ 250 mls/hr IV ONETIME ONE Stop: 11/06/19 07:32 Last Admin: 11/06/19 07:01 Dose: 250 mls/hr Documented by: Lactated Ringer's (Ringers, Lactated) Confirm Administered Dose 2,000 mls @ as directed .ROUTE .STK-MED ONE Stop: 11/06/19 07:11 Phenylephrine HCl 1 mg/ Sodium (Chloride) 10.1 mls @ 1 mls/sec IV TITRATE [facility]; Protocol Lactated Ringer's (Ringers, Lactated) 1,000 mls @ 75 mls/hr IV ASDIRECTED [facility] Last Admin: 11/06/19 19:12 Dose: 75 mls/hr Documented by: Ketorolac Tromethamine (Toradol) Confirm Administered Dose 30 mg .ROUTE .STK-MED ONE Stop: 11/06/19 07:11 Ketorolac Tromethamine (Toradol) 30 mg IVPUSH Q6H [facility] Stop: 11/07/19 04:01 Last Admin: 11/07/19 03:57 Dose: 30 mg Documented by: Labetalol HCl (Normodyne) 20 mg IVPUSH ONETIME ONE; Protocol Stop: 11/05/19 08:25 Last Admin: 11/05/19 08:39 Dose: 20 mg Documented by: Lidocaine/Epinephrine (Xylocaine-Mpf 2%-Epi 1:200,000) Confirm Administered Dose 20 ml .ROUTE .STK-MED ONE Stop: 11/06/19 07:11 Metoclopramide HCl (Reglan) 10 mg IVPUSH ONETIME ONE Stop: 11/06/19 06:34 Last Admin: 11/06/19 06:43 Dose: 10 mg Documented by: Miscellaneous Medication (Phenylephrine 1 Mg/10 Ml-Ns) Confirm Administered Dose 1 mg IV .STK-MED ONE Stop: 11/06/19 07:11 Misoprostol (Cytotec) 25 mcg VAG Q4H PRN PRN Reason: cervical ripening Last Admin: 11/04/19 19:20 Dose: 25 mcg Documented by: Misoprostol (Cytotec) Confirm Administered Dose 25 mcg .ROUTE .STK-MED ONE Stop: 11/04/19 19:16 Last Admin: 11/04/19 21:01 Dose: Not Given Documented by: Misoprostol (Cytotec) 25 mcg VAG Q4H PRN PRN Reason: cervical ripening Last Admin: 11/05/19 04:00 Dose: 25 mcg Documented by: Misoprostol (Cytotec) Confirm Administered Dose 200 mcg .ROUTE .STK-MED ONE Stop: 11/06/19 07:55 Misoprostol (Cytotec) Confirm Administered Dose 400 mcg .ROUTE .STK-MED ONE Stop: 11/06/19 07:56 Last Admin: 11/06/19 08:10 Dose: 600 mcg Documented by: Morphine Sulfate (Morphine) Confirm Administered Dose 0 mg .ROUTE .STK-MED ONE Stop: 11/06/19 07:12 Morphine Sulfate (Duramorph Pf) Confirm Administered Dose 1 mg .ROUTE .STK-MED ONE Stop: 11/06/19 07:12 Nalbuphine HCl (Nubain) 10 mg IVPUSH Q2H PRN PRN Reason: Pain Naloxone HCl (Narcan) 0.1 mg IVPUSH SEECOMMENT PRN PRN Reason: Respiratory Depression Nifedipine (Procardia Xl) 60 mg PO ONETIME [facility] Last Admin: 11/05/19 07:36 Dose: 60 mg Documented by: Nifedipine (Procardia Xl) 60 mg PO ONETIME ONE Stop: 11/06/19 07:01 Last Admin: 11/06/19 07:01 Dose: 60 mg Documented by: Nifedipine (Procardia Xl) 60 mg PO DAILY [facility] Last Admin: 11/07/19 10:57 Dose: Not Given Documented by: Ondansetron HCl (Zofran) 4 mg IVPUSH Q4H PRN PRN Reason: Nausea/Vomiting Last Admin: 11/05/19 11:03 Dose: 4 mg Documented by: Ondansetron HCl (Zofran) Confirm Administered Dose 4 mg .ROUTE .STK-MED ONE Stop: 11/06/19 07:11 Oxytocin (Pitocin) Confirm Administered Dose 10 unit .ROUTE .STK-MED ONE Stop: 11/06/19 07:11 Oxytocin (Pitocin) Confirm Administered Dose 10 unit .ROUTE .STK-MED ONE Stop: 11/06/19 07:51 Sodium Chloride (Saline Flush) 10 ml FLUSH ASDIRECTED PRN PRN Reason: Keep Vein Open Zolpidem Tartrate (Ambien) 5 mg PO BEDTIME PRN PRN Reason: Insomnia Last Admin: 11/06/19 02:30 Dose: 5 mg Documented by:
[2019-11-08 10:18] VITALS: BP 145/88; PULSE 96
== END 2019-11-08 11:15 | disposition home or self-care (01) | DRG 788 ==
LOC: JD.OB 07:47 → OBSVTOIN 11-06 07:47 → JD.OB 11-06 07:48
PROVIDERS: ADMIT Obstetrics & Gynecology; ATTEND Obstetrics & Gynecology
PROC: 10D00Z1 Extraction of Products of Conception, Low, Open Approach (ICD-10-PCS; principal; 2019-11-06)
PROC: 10H07YZ Insertion of Other Device into Products of Conception, Via Natural or Artificial Opening (ICD-10-PCS; 2019-11-06)
PROC: 10907ZC Drainage of Amniotic Fluid, Therapeutic from Products of Conception, Via Natural or Artificial Opening (ICD-10-PCS; 2019-11-06)
PROC: 3E0R3BZ Introduction of Anesthetic Agent into Spinal Canal, Percutaneous Approach (ICD-10-PCS; 2019-11-06)
DX: O16.4 Unspecified maternal hypertension, complicating childbirth (principal); Z37.0 Single live birth; O99.62 Diseases of the digestive system complicating childbirth; K21.9 Gastro-esophageal reflux disease without esophagitis; Z3A.37 37 weeks gestation of pregnancy; Z11.59 Encounter for screening for other viral diseases
CPT/HCPCS: 36415; 51702; 59025; 80053; 82565; 82570; 84156; 84450; 84460; 85027; 86592; 86850; 86900; 86901; 94762; A9270-GY; J0456; J0690; J1885; J2270; J2274; J2370; J2405; J2590; J2765; J3010; J3475; J3490; J7050; J7120; U0002

== ENCOUNTER 2023-03-01 17:47 | Emergency (ER) | payer BC, OTHER ==
[2023-03-01] MEDS ORDERED: Ondansetron 4 MG/2 ML SDV IVPUSH ONE (18:18)
[2023-03-01] MEDS ORDERED: Sodium Chloride 0.9% 1,000 ML IV STA ×2 (18:18→19:07)
[2023-03-01] MEDS ORDERED: Sodium Chloride 0.9% 10 ML Syringe FLUSH PRN (18:18)
[2023-03-01 18:27] LABS: BASOPHILS PERCENT AUTO 0.2 % (0.0-1.0); EOSINOPHILS ABSOLUTE AUTO 0.3 K/mm3 (0.0-0.4); EOSINOPHILS PERCENT AUTO 1.4 % (0.0-6.0); HEMATOCRIT 50.4 % (37.0-47.0); HEMOGLOBIN 16.5 gm/dl (12.0-16.0); IMMATURE GRAN ABSOLUTE AUTO 0.08 K/mm3 (0.00-0.05); IMMATURE GRAN PERCENT AUTO 0.5 % (0.0-0.4); LYMPHOCYTES ABSOLUTE AUTO 0.7 K/mm3 (1.0-4.8); LYMPHOCYTES PERCENT AUTO 4.1 % (24.0-44.0); MEAN CORPUSCULAR HEMOGLOBIN 28.1 pg (28.0-32.0); MEAN CORPUSCULAR HGB CONC 32.7 g/dl (32.0-36.0); MEAN CORPUSCULAR VOLUME 85.7 fl (83.0-99.0); MEAN PLATELET VOLUME 9.3 fl (9.4-12.3); MONOCYTES ABSOLUTE AUTO 0.6 K/mm3 (0.0-0.8); MONOCYTES PERCENT AUTO 3.3 % (0.0-8.0); NEUTROPHILS PERCENT AUTO 90.5 % (41.0-71.0); PLATELET COUNT,PLT 371 K/mm3 (150-400); RED BLOOD CELL COUNT 5.88 M/mm3 (4.10-5.30); WHITE BLOOD CELL COUNT,WBC 17.69 K/mm3 (3.9-11.3)
[2023-03-01 18:47] LABS: A/G RATIO 0.8 (1-2); ALBUMIN 4.1 g/dl (3.4-5.0); ANION GAP 20.3 (5-15); BILIRUBIN TOTAL 0.6 mg/dL (0.2-1.0); BUN/CREATININE RATIO 16.4 (14-18); C-REACTIVE PROTEIN 1.5 mg/dL (<1.0); CALCIUM 9.7 mg/dL (8.5-10.1); CREATININE 1.1 mg/dL (0.55-1.02); EST CRCL DRUG DOSING (CG) 64.58 mL/min; POTASSIUM,K 4.3 mEq/L (3.5-5.1); PROTEIN TOTAL,TP 9.3 g/dl (6.4-8.2)
[2023-03-01 20:01] LABS: APPEARANCE,URINE SLT CLOUDY (Clear); BILIRUBIN,URINE NEGATIVE (Negative); COLOR,URINE YELLOW (Yellow); GLUCOSE,URINE NEGATIVE (Negative); KETONES,URINE 3+ (Negative); LEUKOCYTE ESTERASE,URINE NEGATIVE (Negative); NITRITE,URINE NEGATIVE (Negative); OCCULT BLOOD,URINE 3+ (Negative); PH,URINE 5.5 (5.0-8.0); PROTEIN,URINE 1+ (Negative); UROBILINOGEN,URINE 0.2 (0.2-1.0)
[2023-03-01 20:21] LABS: BACTERIA,URINE FEW /hpf (FEW); MUCUS,URINE MODERATE /hpf (FEW); RBC,URINE 50-75 /hpf (0-5); SQUAMOUS EPITHELIAL CELLS,UR 0-5 /hpf (0-5); WBC,URINE 0-5 /hpf (0-5)
[2023-03-01 20:22] LABS: HYALINE CASTS,URINE 20-30 /lpf (0-5)
[2023-03-01 22:53] VITALS: BP 131/85; PULSE 80
== END 2023-03-01 22:57 | disposition home or self-care (01) ==
LOC: JD.ED 17:47
DX: A08.4 Viral intestinal infection, unspecified (principal); I10 Essential (primary) hypertension; Z90.49 Acquired absence of other specified parts of digestive tract; Z79.899 Other long term (current) drug therapy
CPT/HCPCS: 36415; 80053; 81001; 84703; 85025; 86140; 96361; 96374; 99284; J2405; J7030